=== PATIENT | female | born 1985 | race Caucasian/White ===

== ENCOUNTER 2020-11-14 13:59 | Emergency (ER) | payer OTHER, SELFPAY ==
[2020-11-14 14:08] VITALS: BP 158/100; PULSE 87; RESP 12; TEMP 37; O2SAT 98; BMI 49.9
[2020-11-14 14:41] LABS: Add Manual Diff / Slide Review NO; Basophils Absolute Auto 0 /uL (0-100); Basophils Percent Auto 0.4 % (0-2); Eosinophils Absolute Auto 100 /uL (0-450); Eosinophils Percent Auto 1.6 % (2-4); Hematocrit 40.6 % (36-46); Hemoglobin 13.3 g/dL (12.0-16.0); Lymphocytes Absolute Auto 2200 /uL (1100-4500); Lymphocytes Percent Auto 24.7 % (25-40); Mean Corpuscular HGB Conc 32.9 % (30-36); Mean Corpuscular Hemoglobin 27.6 PG (26-34); Mean Corpuscular Volume 83.9 fL (80-100); Monocytes Absolute Auto 500 /uL (0-900); Monocytes Percent Auto 5.4 % (3-14); Neutrophils Absolute Auto 6100 /uL (1500-7000); Neutrophils Percent Auto 67.9 % (50-75); Platelet Count 283 X10^3/uL (150-400); Red Blood Cell Count 4.84 X10^6/uL (4.0-5.2); Red Cell Distribution Width 13.9 % (11.6-14.8)
[2020-11-14 14:48] LABS: Blood Urea Nitrogen 19 mg/dL (7-17); Calcium 8.9 mg/dL (8.4-10.2); Carbon Dioxide 27 mmol/L (22-32); Chloride 104 mmol/L (98-107); Estimated Glomerular Filt Rate > 60.0 mL/min (>60); Glucose 102 mg/dL (70-100); HEMOLYSIS 17 (0-50); Potassium 4.1 mmol/L (3.4-5.1); Sodium 137 mmol/L (137-145)
--- NOTE | 2020-11-14 14:48 | DI.CT.S_ITS ---
PROCEDURE: CT HEAD/BRAIN WO CON INDICATIONS: severe headache and vision change TECHNIQUE: Noncontrast 4.5 mm thick angled axial sections acquired from the foramen magnum to the vertex, with coronal and sagittal reformats. For radiation dose reduction, the following was used: automated exposure control, adjustment of mA and/or kV according to patient size. COMPARISON: None. FINDINGS: Image quality: Excellent. CSF spaces: Basal cisterns are patent. No extra-axial fluid collections. Ventricles are normal in size and shape. Brain: No midline shift. No intracranial masses or hemorrhage. Delgadillo-white matter interface is normal. Skull and face: Calvarium and visualized facial bones are intact, without suspicious lesions. Sinuses: Visualized sinuses and mastoids are clear. IMPRESSION: Source of headache and vision changes is not seen. No sign of intracranial hemorrhage or mass. Dictated by: Lane Cifuentes M.D. on 11/14/2020 at 14:54 Approved by: Lane Cifuentes M.D. on 11/14/2020 at 14:54
[2020-11-14] MEDS: METOCLOPRAMIDE 10 MG/2 ML INJ IV (14:53)
[2020-11-14] MEDS: diphenhydrAMINE 50 MG/ML VIAL 25 MG IV (14:53)
[2020-11-14] MEDS: SODIUM CHLORIDE 0.9% 1,000 ML 1000 ML IV (14:54)
--- NOTE | 2020-11-14 14:55 | ED_ITS ---
HPI - Headache <ANN-MARIE Horton - Last Filed: 11/14/20 17:05> General Chief Complaint: Headache Stated Complaint: REACTION TO COVID VACCINE HEADACHES FEVER LEFT EYE Time Seen by Provider: 11/14/20 14:02 Source: patient and family Mode of arrival: Ambulatory Limitations: no limitations History of Present Illness HPI Narrative: This is a 35 year female, nonsmoker, who has no contributory medical history or frequent ore severe headaches presents to ED the chief complain of frontal headache, photophobia, nausea and vomiting last night, peripheral vision changes after the Covid Moderna vaccination. Patient reports received 1st dose of COVID vaccination on 11/01/2020 and she felt immediate headache. She also developed right deltoid abscess which was treated with amoxicillin. Patient reports has been running low-grade of temperature in 99- 100 F degree since the Covid vaccination. Patient reports severe frontal headache since 4:00 p.m. yesterday. Patient was evaluated by dye colorist dyer in [facility] in [place] and is currently waiting for referral to go through to neuro field service specialist in [place]. According to spouse, eye exam per dye colorist dyer was within normal with normal IOP. They were told the patient's symptoms could be due to pressure in optic nerve. Patient denies facial droops, extremity weakness, speech difficulty, or balance difficulty. 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 Related Data Previous Rx's Medication Instructions Recorded methocarbamol [Robaxin-750] 750 mg PO QIDP PRN #40 tab 05/10/17 ondansetron 4 mg PO Q6H PRN #7 tab 11/14/20 Allergies Allergy/AdvReac Type Severity Reaction Status Date / Time lidocaine Allergy Unknown Verified 11/14/20 16:44 ARTECAINE (PRESERVATIVE) Allergy Unknown Uncoded 11/14/20 16:44 preservative in lidocaine Allergy Unknown Uncoded 11/14/20 16:44 Review of Systems <ANN-MARIE Horton - Last Filed: 11/14/20 17:05> Review of Systems Narrative: General: Denies (+) subjective fever, chills, fatigue, malaise, sweats. HEENT: See HPI Respiratory: Denies dyspnea, cough, wheezing, hemoptysis, sputum. Cardiovascular: Denies chest pain, palpitations, orthopnea, edema. Gastrointestinal: Denies nausea, vomiting, abdominal pain, diarrhea, constipation, melena. : Denies dysuria, frequency, incontinence, hematuria, urinary retention. Musculoskeletal: Denies weakness, joint pain or bony pain. Skin: Denies rash, skin lesions, or other. Neurologic: See HPI Psychiatric: No concerning psychosocial issues. 12-point review of systems is negative except for those stated above. Patient History <ANN-MARIE Horton - Last Filed: 11/14/20 17:05> Surgical History (Updated 11/14/20 @ 15:04 by ANN-MARIE Horton) H/O knee surgery History of colon surgery History of right salpingo-oophorectomy Social History Smoking Status: Never smoker Smoking Status: Never smoker alcohol intake frequency: holidays/special occasions only Substance Use Type: does not use Exam <ANN-MARIE Horton - Last Filed: 11/14/20 17:05> Narrative Exam Narrative: GEN: Alert, oriented x 3, well appearing and nourished, and in no acute distress. Head: Normal cephalic, atraumatic. No scalp or temporal tenderness, palpable mass or rash. EYES: Pupils are equal, round, and reactive to light and accommodation. Extraocular muscles are intact bilaterally. There is no subconjunctival hemorrhage, exudate and sclera non-icteric. ENT: Hearing grossly intact. Nose without bleeding, purulent discharge, septal hematoma or deviation. Turbinate without erythema or swelling. Facial sinuses nontender to palpate. Mucous membrane moist, no mucosal lesion. Throat without erythema, tonsillar hypertrophy or exudate. Uvula in midline, airway patent. Neck: Trachea in midline. No JVD, non-tender without lymphadenopathy. No masses or thyroid megaly. Supple, non-tender and no meningeal signs. CARDIAC: Normal regular rate and rhythm without murmurs, gallops, or rubs. No chest wall tenderness. No peripheral edema, cyanosis or pallor. Capillary refill is less than 2 seconds. No carotid bruits. RESPIRATORY: Lungs are cleat to auscultate bilaterally. No cough, wheezes, rales, or rhonchi. No stridor, respiratory distress, increase work of breathing, or accessary muscle used. ABD: Abdomen soft, nontender and non-distended. No guarding or rebound tenderness to palpate. Bowel sounds are normal in all 4 quadrants. There is no palpable masses or organomegaly. EXT: Full painless ROM of all extremities with no loss of sensation, strength, effusion or edema. SKIN: Warm, dry, normal color for patient. No erythema, lesions or rash. BACK: Nontender without deformity or crepitance. No flank tenderness. NEUROLOGICAL: Alert and oriented to place, time and person. No facial droops, dysphasia. CN II-XII intact. Strength and sensation symmetric and intact throughout. Cerebellar testing normal. PSYCHIATRIC: Good judgement and reason, without hallucinations, abnormal affect or abnormal behaviors during the examination. Patient is not suicidal. Initial Vital Signs Initial Vital Signs: Vital Signs Temperature 98.6 F 11/14/20 14:08 Pulse Rate 87 11/14/20 14:08 Respiratory Rate 12 11/14/20 14:08 Blood Pressure 158/100 H 11/14/20 14:08 Pulse Oximetry 98 11/14/20 14:08 <Jayde Martin DO - Last Filed: 11/14/20 19:39> Initial Vital Signs Initial Vital Signs: Vital Signs Temperature 98.6 F 11/14/20 14:08 Pulse Rate 87 11/14/20 14:08 Respiratory Rate 12 11/14/20 14:08 Blood Pressure 158/100 H 11/14/20 14:08 Pulse Oximetry 98 11/14/20 14:08 Scores <Froylan ANN-MARIE Cleaning - Last Filed: 11/14/20 17:05> GCS Ash[place] coma scale eye opening: Spontaneous [place] coma scale verbal response: Orientated [place] coma scale motor response: Obey commands [place] coma scale total score: 15 NIH Stroke Scale Level of Conciousness: Alert, keenly responsive Ask month/age: Answers both questions correctly. Open/close eyes, close hand: Performs both tasks correctly Best gaze horizontal: Normal Facial palsy: Normal symetrical movement Left arm drift: No drift for full 10 sec Right arm drift: No drift for full 10 sec Left leg drift: No drift for full 5 sec Right leg drift: No drift for full 5 sec Limb ataxia: Absent Sensory on face/arms/legs: Normal, no sensory loss Best language: No aphasia, normal Dysarthria: Normal Extinction or inattention: No abnormality Course <ANN-MARIE Horton - Last Filed: 11/14/20 17:05> Orders Ordered: ED Orders 11/14/20 14:11 COVID19 Stat 11/14/20 14:19 Basic Metabolic Panel Stat Complete Blood Count AUTO DIFF Stat 11/14/20 14:48 CT head/brain wo con Stat Discontinued Medications Dexamethasone (Dexamethasone 10 Mg/Ml Vial) 10 mg IV NOW ONE Stop: 11/14/20 16:39 Last Admin: 11/14/20 16:48 Dose: 10 mg Documented by: MENDOZA Diphenhydramine HCl (Diphenhydramine 50 Mg/Ml Vial) 25 mg IV NOW ONE Stop: 11/14/20 14:35 Last Admin: 11/14/20 14:53 Dose: 25 mg Documented by: RAFAEL Sodium Chloride (Normal Saline 0.9%) 1,000 mls @ 1,000 mls/hr IV BOLUS ONE Stop: 11/14/20 15:33 Last Infusion: 11/14/20 16:55 Dose: 0 mls/hr Documented by: Admin: 11/14/20 14:54 Dose: 1,000 mls/hr Documented by: RAFAEL Ketorolac Tromethamine (Ketorolac 60 Mg/2 Ml Vial) 15 mg IV NOW ONE Stop: 11/14/20 15:08 Last Admin: 11/14/20 15:12 Dose: 15 mg Documented by: MENDOZA Metoclopramide HCl (Metoclopramide 10 Mg/2 Ml Inj) 10 mg IV NOW ONE Stop: 11/14/20 14:35 Last Admin: 11/14/20 14:53 Dose: 10 mg Documented by: RAFAEL Pantoprazole Sodium (Pantoprazole 20 Mg Tablet) 20 mg PO NOW ONE Stop: 11/14/20 16:39 Last Admin: 11/14/20 16:48 Dose: 20 mg Documented by: MENDOZA Vital Signs Vital signs: Vital Signs - 8 hr 11/14/20 14:08 11/14/20 15:30 11/14/20 17:01 Temperature 98.6 F Pulse Rate 87 72 80 Respiratory Rate 12 16 16 Blood Pressure 158/100 H 147/92 H 135/73 Pulse Oximetry 98 96 99 <Jayde Martin DO - Last Filed: 11/14/20 19:39> Orders Ordered: ED Orders 11/14/20 14:11 COVID19 Stat 11/14/20 14:19 Basic Metabolic Panel Stat Complete Blood Count AUTO DIFF Stat 11/14/20 14:48 CT head/brain wo con Stat Discontinued Medications Dexamethasone (Dexamethasone 10 Mg/Ml Vial) 10 mg IV NOW ONE Stop: 11/14/20 16:39 Last Admin: 11/14/20 16:48 Dose: 10 mg Documented by: MENDOZA Diphenhydramine HCl (Diphenhydramine 50 Mg/Ml Vial) 25 mg IV NOW ONE Stop: 11/14/20 14:35 Last Admin: 11/14/20 14:53 Dose: 25 mg Documented by: RAFAEL Sodium Chloride (Normal Saline 0.9%) 1,000 mls @ 1,000 mls/hr IV BOLUS ONE Stop: 11/14/20 15:33 Last Infusion: 11/14/20 16:55 Dose: 0 mls/hr Documented by: Admin: 11/14/20 14:54 Dose: 1,000 mls/hr Documented by: RAFAEL Ketorolac Tromethamine (Ketorolac 60 Mg/2 Ml Vial) 15 mg IV NOW ONE Stop: 11/14/20 15:08 Last Admin: 11/14/20 15:12 Dose: 15 mg Documented by: MENDOZA Metoclopramide HCl (Metoclopramide 10 Mg/2 Ml Inj) 10 mg IV NOW ONE Stop: 11/14/20 14:35 Last Admin: 11/14/20 14:53 Dose: 10 mg Documented by: RAFAEL Pantoprazole Sodium (Pantoprazole 20 Mg Tablet) 20 mg PO NOW ONE Stop: 11/14/20 16:39 Last Admin: 11/14/20 16:48 Dose: 20 mg Documented by: MENDOZA Vital Signs Vital signs: Vital Signs - 8 hr 11/14/20 14:08 11/14/20 15:30 11/14/20 17:01 Temperature 98.6 F Pulse Rate 87 72 80 Respiratory Rate 12 16 16 Blood Pressure 158/100 H 147/92 H 135/73 Pulse Oximetry 98 96 99 MDM - Headache <Froylan ANN-MARIE Cleaning - Last Filed: 11/14/20 17:05> Differential Diagnosis Differential diagnosis: Likely headache Medical Records Attestation: I reviewed the patient's medical records. Lab Data Attestation: I reviewed the patient's lab results. Result diagrams: 11/14/20 14:19 11/14/20 14:19 Labs: Lab Results 11/14/20 11/14/20 11/14/20 Range/Units 14:11 14:19 14:19 WBC 9.0 (4.5-11.0) X10^3/uL RBC 4.84 (4.0-5.2) X10^6/uL Hgb 13.3 (12.0-16.0) g/dL Hct 40.6 (36-46) % MCV 83.9 (80-100) fL MCH 27.6 (26-34) PG MCHC 32.9 (30-36) % RDW 13.9 (11.6-14.8) % Plt Count 283 (150-400) X10^3/uL Neut % (Auto) 67.9 (50-75) % Lymph % (Auto) 24.7 L (25-40) % Bee % (Auto) 5.4 (3-14) % Eos % (Auto) 1.6 L (2-4) % Baso % (Auto) 0.4 (0-2) % Neut # (Auto) 6100 (9187-0145) /uL Lymph # (Auto) 2200 (5631-8378) /uL Bee # (Auto) 500 (0-900) /uL Eos # (Auto) 100 (0-450) /uL Baso # (Auto) 0 (0-100) /uL Sodium 137 (137-145) mmol/L Potassium 4.1 (3.4-5.1) mmol/L Chloride 104 (98-107) mmol/L Carbon Dioxide 27 (22-32) mmol/L BUN 19 H (7-17) mg/dL Creatinine 0.76 (0.52-1.04) mg/dL Estimated GFR > 60.0 (>60) mL/min BUN/Creatinine Ratio 25.0 H (6-22) Glucose 102 H (70-100) mg/dL Calcium 8.9 (8.4-10.2) mg/dL SARS-CoV-2 (PCR) Negative (Negative) Imaging Data CT scan - head: Radiologist's Impression: [address] [id number] Scan ReportSigned Patient: Carina Vazquez EMR#: [id number]: 1985Acct:[id number]/Sex: 35 / FDate of Service: 11/14/20Loc: EDAccession Number: [id number] Procedure: CT head/brain wo con Ordering Provider: Froylan Cleaning PROCEDURE: CT HEAD/BRAIN WO CON INDICATIONS: severe headache and vision change TECHNIQUE: Noncontrast 4.5 mm thick angled axial sections acquired from the foramen magnum to the vertex, with coronal and sagittal reformats. For radiation dose reduction, the following was used: automated exposure control, adjustment of mA and/or kV according to patient size. COMPARISON: None. FINDINGS: Image quality: Excellent. CSF spaces: Basal cisterns are patent. No extra-axial fluid collections. Ventricles are normal in size and shape. Brain: No midline shift. No intracranial masses or hemorrhage. Delgadillo-white matter interface is normal. Skull and face: Calvarium and visualized facial bones are intact, without suspicious lesions. Sinuses: Visualized sinuses and mastoids are clear. IMPRESSION: Source of headache and vision changes is not seen. No sign of intracranial hemorrhage or mass. Dictated by: Lane Cifuentes M.D. on 11/14/2020 at 14:54 Approved by: Lane Cifuentes M.D. on 11/14/2020 at 14:54 [facility] Narrative Medical decision making narrative: This is a 35 year female who presents to ED with chief complain of frontal headache, nausea and vomiting times once, photophobia and she has associated her symptoms after receiving COVID vaccination. First vaccination received on 01 of November and she felt immediate headache. She has been having left peripheral blurred vision and she has evaluated by dye colorist dyer in [facility] with normal findings with his capacity and is currently waiting for referral to go through to be seen by neuro field service specialist at [place] with concerns for possible swelling/edema above the optic nerve. NIHSS score 0. No acute stroke signs. Given patient denies severe or frequent headache history, head CT was obtained with no acute findings. Labs are assuring except mildly elevated BUN, BUN/creatinine ratio indicate dehydration. COVID test was negative. Patient was treated with IV fluid, Benadryl, Reglan, Toradol with Moderate improvement. Patient was given 1 dose of Decadron before leaving ED and discharged to home with ODT Zofran as needed use. Patient advised to follow-up with [place] field service specialist for further evaluation and possible imaging test. Return precautions were discussed with patient and she verbalized understanding in agreement with the treatment plan. <Jayde Martin, DO - Last Filed: 11/14/20 19:39> Lab Data Labs: Lab Results 11/14/20 11/14/20 11/14/20 Range/Units 14:11 14:19 14:19 WBC 9.0 (4.5-11.0) X10^3/uL RBC 4.84 (4.0-5.2) X10^6/uL Hgb 13.3 (12.0-16.0) g/dL Hct 40.6 (36-46) % MCV 83.9 (80-100) fL MCH 27.6 (26-34) PG MCHC 32.9 (30-36) % RDW 13.9 (11.6-14.8) % Plt Count 283 (150-400) X10^3/uL Neut % (Auto) 67.9 (50-75) % Lymph % (Auto) 24.7 L (25-40) % Bee % (Auto) 5.4 (3-14) % Eos % (Auto) 1.6 L (2-4) % Baso % (Auto) 0.4 (0-2) % Neut # (Auto) 6100 (7895-3296) /uL Lymph # (Auto) 2200 (2986-8605) /uL Bee # (Auto) 500 (0-900) /uL Eos # (Auto) 100 (0-450) /uL Baso # (Auto) 0 (0-100) /uL Sodium 137 (137-145) mmol/L Potassium 4.1 (3.4-5.1) mmol/L Chloride 104 (98-107) mmol/L Carbon Dioxide 27 (22-32) mmol/L BUN 19 H (7-17) mg/dL Creatinine 0.76 (0.52-1.04) mg/dL Estimated GFR > 60.0 (>60) mL/min BUN/Creatinine Ratio 25.0 H (6-22) Glucose 102 H (70-100) mg/dL Calcium 8.9 (8.4-10.2) mg/dL SARS-CoV-2 (PCR) Negative (Negative) Discharge Plan Departure Patient Disposition: Home Clinical Impression: Blurred vision, left eye Headache Qualifiers: Headache type: unspecified Headache chronicity pattern: acute headache In tractability: not intractable Qualified Code(s): R51.9 - Headache, unspecified Instructions: DI for Headache Activity Restrictions/Additional Instructions: You have been diagnosed with [headache, nausea vomiting, blurred vision in left eye. CT of head without acute findings. COVID test was negative. Lab test are assuring.]. What to do: *Take your medications as directed. Please take [id number] Tylenol and or Motrin as needed for discomfort. You can take Zofran as needed for nausea. *Follow up with your primary care provider in 2-3 days, call for an appointment. Let them know you were seen in the ED and that we asked you to be seen in follow up. Please follow-up with neuro field service specialist for an evaluation. Zofran has been transmitted to [facility] in [place]. *Return to ED if you have any new, worsening, or concerning symptoms, such as [chest pain, breathing difficulty, unable to tolerate fluids, fever, stroke-like symptoms, or any acute concerns]. Prescriptions: New ondansetron 4 mg tablet,disintegrating 4 mg PO Q6H PRN (Reason: nausea and vomiting) Qty: 7 RF: 0 No Action methocarbamol [Robaxin-750] 750 MG tablet 750 mg PO QIDP PRNQty: 40 RF: 0 Referrals: [facility] [Outside] <Jayde Martin, - Last Filed: 11/14/20 19:39> [facility] ED Attending Jaimie Attestation: I was immediately available in the department for consultation. Documentation has been reviewed. Case was discussed with myself agree with documentation.
[2020-11-14] MEDS: KETOROLAC 60 MG/2 ML VIAL 15 MG IV (15:12)
[2020-11-14 15:15] LABS: COVID19 -Nasal RAPID Negative (Negative)
[2020-11-14 15:30] VITALS: BP 147/92; PULSE 72; RESP 16; O2SAT 96
[2020-11-14] MEDS: DEXAMETHASONE 10 MG/ML VIAL IV (16:48)
[2020-11-14] MEDS: PANTOPRAZOLE 20 MG TABLET PO (16:48)
[2020-11-14 17:01] VITALS: BP 135/73; PULSE 80; RESP 16; O2SAT 99
== END 2020-11-14 17:01 | disposition home or self-care (01) ==
PROVIDERS: Emergency Provider Nurse Practitioner Family
DX: H53.8 Other visual disturbances (principal); R51.9 Headache, unspecified; R11.2 Nausea with vomiting, unspecified; R50.9 Fever, unspecified; Z20.822 Contact with and (suspected) exposure to COVID-19; R79.89 Other specified abnormal findings of blood chemistry
CPT/HCPCS: 36415; 70450; 80048; 85025; 87635; 96361; 96374; 96375; 99283; 99284; C9803; J1100; J1200; J1885; J2765

== ENCOUNTER 2021-01-26 07:20 | Emergency (ER) | payer OTHER, SELFPAY ==
[2021-01-26 07:27] VITALS: BP 158/93; PULSE 96; RESP 16; TEMP 36.5; O2SAT 99; BMI 51.0
--- NOTE | 2021-01-26 07:27 | DI.RAD.S_ITS ---
PROCEDURE: XR HUMERUS LT 2V INDICATIONS: prior ORIF with new injury and pain TECHNIQUE: 2 views of the humerus were acquired. COMPARISON: [facility], , HUMERUS 2V LEFT, 05/10/2017, 20:23. [facility], , HUMERUS 2V LEFT, 04/22/2016, 8:42. FINDINGS: Bones: Two views of the left humerus demonstrate sideplate and screw fixation. Screws are wall aligned. There is continued healing and remodeling of the mid humeral shaft. No perihardware lucency. Soft tissues: No suspicious soft tissue calcifications. IMPRESSION: Continued healing of a left humerus fracture. Dictated by: Abhishek Chin M.D. on 01/26/2021 at 8:11 Approved by: Abhishek Chin M.D. on 01/26/2021 at 8:13
--- NOTE | 2021-01-26 07:27 | ED_ITS ---
HPI - General Adult General Chief complaint: Extremity Injury, Upper Stated complaint: left arm/shoulder injury pain has metal plate Time Seen by Provider: 01/26/21 07:24 Source: patient Mode of arrival: Ambulatory Limitations: no limitations History of Present Illness HPI narrative: 36-year-old female who has a prior history the left humerus ORIF approximately 4 years ago here for evaluation of pain in her left humerus. She states that yesterday she was riding her horse when the horse slipped and she fell into a tree. She did not fall off of the horse her left arm just hit the tree as the worse came close to it. She has been taking Tylenol and ibuprofen. Has pain in her left upper arm. That radiates from her shoulder to her elbow. Related Data Previous Rx's Medication Instructions Recorded methocarbamol [Robaxin-750] 750 mg PO QIDP PRN #40 tab 05/10/17 ondansetron 4 mg PO Q6H PRN #7 tab 11/14/20 hydrocodone-acetaminophen 1 tab PO Q6H PRN #6 tab 01/26/21 Allergies Allergy/AdvReac Type Severity Reaction Status Date / Time lidocaine Allergy Unknown Verified 11/14/20 16:44 ARTECAINE (PRESERVATIVE) Allergy Unknown Uncoded 11/14/20 16:44 preservative in lidocaine Allergy Unknown Uncoded 11/14/20 16:44 Review of Systems Constitutional Constitutional: Denies fever(s) and Denies weakness Musculoskeletal Musculoskeletal: Denies tingling Comments: Left arm pain Integumentary/Breasts Skin/Breast: Denies lesions and Denies rash Neurologic Neurologic: Denies tingling and Denies weakness Hematologic/Lymphatic On Anticoagulants: No Patient History Medical History Arm pain, left Lumbar strain Post-operative pain Strain of left knee Surgical History (Updated 11/14/20 @ 15:04 by ANN-MARIE Horton) H/O knee surgery History of colon surgery History of right salpingo-oophorectomy Social History Smoking Status: Never smoker Smoking Status: Never smoker alcohol intake frequency: holidays/special occasions only Substance Use Type: does not use Exam Initial Vital Signs Initial Vital Signs: Vital Signs Temperature 97.7 F 01/26/21 07:27 Pulse Rate 96 H 01/26/21 07:27 Respiratory Rate 16 01/26/21 07:27 Blood Pressure 158/93 H 01/26/21 07:27 Pulse Oximetry 99 01/26/21 07:27 Const General: cooperative and comfortable Limitations: mental status not altered HENMT Head: normal to inspection and normocephalic Cardio Pulses: radial pulses present on the left Skin Other: Well-healed surgical scar consistent with her stated history on the medial aspect of her left upper extremity Neuro Sensory Exam: no sensory deficits noted Extrem Other: Patient has full range of motion of her left shoulder left elbow however this does cause discomfort of her left humerus with movement of her shoulder Psych Appearance: grossly normal and well kempt Course Orders Ordered: ED Orders 01/26/21 07:27 XR humerus LT 2V Stat Discontinued Medications Hydrocodone Bitart/Acetaminophen (Hydrocodone/Acet 5/325 Tablet) 1 tab PO NOW ONE Stop: 01/26/21 07:31 Last Admin: 01/26/21 07:38 Dose: 1 tab Documented by: Vital Signs Vital signs: Vital Signs - 8 hr 01/26/21 07:27 Temperature 97.7 F Pulse Rate 96 H Respiratory Rate 16 Blood Pressure 158/93 H Pulse Oximetry 99 Medical Decision Making Imaging Data Extremity x-ray #1: Attestation: I personally reviewed and interpreted this imaging study as follows: My Impression: Prior ORIF plate in place. No signs of acute fracture. MDM Narrative Medical decision making narrative: Patient is neurovascularly intact. Her x- rays today showed no signs of any acute fractures. No indication for further radiologic studies. No indication for orthopedic referral. She will continue with the Tylenol and ibuprofen. We did discuss return precautions. She expressed understanding and agreement. Discharge Plan Departure Patient Disposition: Home Clinical Impression: Arm pain, left Instructions: DI for Arm Pain Activity Restrictions/Additional Instructions: The plate on your left humerus appears well. There are no signs of any new fractures. You have no restrictions on any if your activities. Continue with Tylenol/ibuprofen as the mainstay of your symptom control however if needed take the stronger medication that was transmitted to the pharmacy of your choice. Contact your primary provider for follow-up. Return to the emergency department for any new or worsening symptoms Prescriptions: New hydrocodone-acetaminophen 5-325 mg tablet 1 tab PO Q6H PRN (Reason: pain) Qty: 6 RF: 0 No Action methocarbamol [Robaxin-750] 750 MG tablet 750 mg PO QIDP PRNQty: 40 RF: 0 ondansetron 4 mg tablet,disintegrating 4 mg PO Q6H PRN (Reason: nausea and vomiting) Qty: 7 RF: 0
[2021-01-26] MEDS: HYDROCODONE/ACET 5/325 TABLET 1 TAB PO (07:38)
== END 2021-01-26 08:00 | disposition home or self-care (01) ==
PROVIDERS: Emergency Provider Emergency Medicine
DX: M79.622 Pain in left upper arm (principal); Z98.890 Other specified postprocedural states
CPT/HCPCS: 73060; 99283

== ENCOUNTER 2021-04-08 19:57 | Emergency (ER) | payer OTHER, SELFPAY ==
[2021-04-08 20:03] VITALS: BP 138/56; PULSE 103; RESP 24; TEMP 36.6; O2SAT 97
--- NOTE | 2021-04-08 20:06 | DI.RAD.S_ITS ---
PROCEDURE: XR CHEST 2V INDICATIONS: shortness of breath TECHNIQUE: 2 views of the chest were acquired. COMPARISON: None. FINDINGS: Surgical changes and devices: None. Lungs and pleura: Lungs are clear. No pleural effusions or pneumothorax. Mediastinum: Mediastinal contours are normal. Heart size is normal. Bones and chest wall: No suspicious bony abnormalities. Soft tissues appear unremarkable. IMPRESSION: Normal for age, source of current shortness of breath symptoms is not seen. Dictated by: Lane Cifuentes M.D. on 04/08/2021 at 20:44 Approved by: Lane Cifuentes M.D. on 04/08/2021 at 20:45
--- NOTE | 2021-04-08 20:29 | PC.NURSE ---
patient complains of low grade fever and ear pain. She reports slight blood spotting from her left ear, diarrhea, and SOB. She is most concerned about her ear pain. She is not on control and denies having traveled or sat for long periods of time. She got the first of 1 covid vaccinations and reports brain swelling and did not get the second vaccination. She does work in a hospital.
[2021-04-08 20:30] LABS: Add Manual Diff / Slide Review NO; Basophils Absolute Auto 100 /uL (0-100); Basophils Percent Auto 0.8 % (0-2); Eosinophils Absolute Auto 200 /uL (0-450); Eosinophils Percent Auto 1.5 % (2-4); Hematocrit 38.7 % (36-46); Hemoglobin 12.4 g/dL (12.0-16.0); Lymphocytes Absolute Auto 2500 /uL (1100-4500); Lymphocytes Percent Auto 20.8 % (25-40); Mean Corpuscular HGB Conc 32.1 % (30-36); Mean Corpuscular Hemoglobin 26.5 PG (26-34); Mean Corpuscular Volume 82.6 fL (80-100); Monocytes Absolute Auto 700 /uL (0-900); Neutrophils Absolute Auto 8400 /uL (1500-7000); Neutrophils Percent Auto 70.9 % (50-75); Platelet Count 323 X10^3/uL (150-400); Red Blood Cell Count 4.69 X10^6/uL (4.0-5.2); Red Cell Distribution Width 13.8 % (11.6-14.8); White Blood Cell Count 11.9 X10^3/uL (4.5-11.0)
--- NOTE | 2021-04-08 20:31 | RT ---
Assessed pt at 2017. Pt here for SOB, L ear pain, and low grade fever. Pt on RA, SpO2 97%, RR 22, BS clear t/o. Pt has no pulmonary hx, no smoking hx. Pt doesn't use MDIs/SVNs, O2, and BiPAP/CPAP at home. No extremity swelling. Recommending O2 therapy as needed and will monitor pt.
[2021-04-08 20:39] LABS: Lactate (Lactic Acid) 1.1 mmol/L (0.7-2.1)
[2021-04-08 20:40] LABS: Alanine Aminotransferase 29 IU/L (<35); Albumin 3.7 g/dL (3.5-5.0); Albumin Globulin Ratio 1.2 (1.0-2.8); Alkaline Phosphatase 119 U/L (38-126); Aspartate Aminotransferase 25 IU/L (14-36); BUN Creatinine Ratio 7.5 (6-22); Bilirubin Total 0.4 mg/dL (0.2-1.3); Blood Urea Nitrogen 12 mg/dL (7-17); Calcium 8.4 mg/dL (8.4-10.2); Carbon Dioxide 26 mmol/L (22-32); Chloride 105 mmol/L (98-107); Estimated Glomerular Filt Rate 36.7 mL/min (>60); Globulin 3.1 g/dL (1.7-4.1); Glucose 118 mg/dL (70-100); HEMOLYSIS < 15 (0-50); Potassium 4.1 mmol/L (3.4-5.1); Sodium 139 mmol/L (137-145); Total Protein 6.8 g/dL (6.3-8.2)
[2021-04-08 21:00] LABS: Pregnancy Test Serum,Qual Negative (Negative)
[2021-04-08 21:06] LABS: COVID19 -Nasal RAPID Negative (Negative)
--- NOTE | 2021-04-08 21:33 | ED.GENADULT ---
HPI - General Adult General Chief complaint: Shortness of Breath/Dyspnea Stated complaint: left ear pain/low grade fever/shortness of breath Time Seen by Provider: 04/08/21 20:17 Source: patient Mode of arrival: Ambulatory Limitations: no limitations History of Present Illness HPI narrative: Patient is a 36-year-old female here for evaluation of left ear pain. She also states she has had a low-grade fever for the past day. Prior to coming into the emergency department she had 1 episode of shortness of breath that has now resolved. Has not tried anything for her symptoms prior to arrival Related Data Previous Rx's Medication Instructions Recorded methocarbamol [Robaxin-750] 750 mg PO QIDP PRN #40 tab 05/10/17 ondansetron 4 mg PO Q6H PRN #7 tab 11/14/20 hydrocodone-acetaminophen 1 tab PO Q6H PRN #6 tab 01/26/21 Allergies Allergy/AdvReac Type Severity Reaction Status Date / Time lidocaine Allergy Unknown Verified 11/14/20 16:44 ARTECAINE (PRESERVATIVE) Allergy Unknown Uncoded 11/14/20 16:44 preservative in lidocaine Allergy Unknown Uncoded 11/14/20 16:44 Review of Systems Constitutional Constitutional: Reports fever(s) ENT Comments: Left ear pain Cardiovascular Cardiovascular: Denies chest pain and Reports dyspnea Respiratory Respiratory: Reports dyspnea Gastrointestinal Gastrointestinal: Denies abdominal pain and Reports vomiting (2 episodes of vomiting yesterday) Musculoskeletal Musculoskeletal: Reports system reviewed and no additional complaints, except as documented Integumentary/Breasts Skin/Breast: Denies rash Neurologic Neurologic: Reports system reviewed and no additional complaints, except as documented Psychiatric Psychiatric: Reports system reviewed and no additional complaints, except as documented Patient History Medical History Arm pain, left Lumbar strain Post-operative pain Strain of left knee Surgical History (Updated 11/14/20 @ 15:04 by ANN-MARIE Horton) H/O knee surgery History of colon surgery History of right salpingo-oophorectomy Social History Smoking Status: Never smoker Smoking Status: Never smoker alcohol intake frequency: holidays/special occasions only Substance Use Type: does not use Exam Initial Vital Signs Initial Vital Signs: Vital Signs Temperature 97.9 F 04/08/21 20:03 Pulse Rate 103 H 04/08/21 20:03 Respiratory Rate 24 04/08/21 20:03 Blood Pressure 138/56 L 04/08/21 20:03 Pulse Oximetry 97 04/08/21 20:03 Const General: cooperative and comfortable Limitations: mental status not altered HENMT Ears: external ears normal and TM's normal bilaterally Neck Lymphatic: lymphadenopathy (Left anterior cervical) Resp Effort & Inspection: normal respiratory effort Auscultation: clear to auscultation bilaterally Cardio Rate: regular rate Rhythm: regular rhythm Skin Lesions: no lesions Rashes: no rashes Neuro General: patient alert, patient awake and patient oriented x3 Cognition: normal cognition Speech: speech normal Extrem General: normal to inspection and capillary refill normal Psych Appearance: grossly normal and well kempt Course Orders Ordered: ED Orders 04/08/21 20:06 XR chest 2V Stat EKG-12 Lead Stat RT Consult Eval and Treat Now 04/08/21 20:22 Complete Blood Count AUTO DIFF Stat Comprehensive Metabolic Panel Stat Lactate (Lactic Acid) Stat Test Serum,Qual Stat 04/08/21 20:42 COVID19 -Nasal swab/Pre-Proc Stat Discontinued Medications Sodium Chloride (Normal Saline 0.9%) 1,000 mls @ 1,000 mls/hr IV BOLUS ONE Stop: 04/08/21 22:09 Last Infusion: 04/08/21 22:00 Dose: 0 mls/hr Documented by: Admin: 04/08/21 21:35 Dose: 1,000 mls/hr Documented by: ALEC Vital Signs Vital signs: Vital Signs - 8 hr 04/08/21 20:03 04/08/21 21:38 04/08/21 21:58 Temperature 97.9 F Pulse Rate 103 H 89 96 H Respiratory Rate 24 24 14 Blood Pressure 138/56 L 135/70 135/70 Pulse Oximetry 97 99 96 Medical Decision Making Lab Data Lab results reviewed: Yes I reviewed the patient's lab results. Result diagrams: 04/08/21 20:22 04/08/21 20:22 Labs: Lab Results 04/08/21 04/08/21 04/08/21 Range/Units 20:22 20:22 20:22 WBC 11.9 H (4.5-11.0) X10^3/uL RBC 4.69 (4.0-5.2) X10^6/uL Hgb 12.4 (12.0-16.0) g/dL Hct 38.7 (36-46) % MCV 82.6 (80-100) fL MCH 26.5 (26-34) PG MCHC 32.1 (30-36) % RDW 13.8 (11.6-14.8) % Plt Count 323 (150-400) X10^3/uL Neut % (Auto) 70.9 (50-75) % Lymph % (Auto) 20.8 L (25-40) % Glasscock % (Auto) 6.0 (3-14) % Eos % (Auto) 1.5 L (2-4) % Baso % (Auto) 0.8 (0-2) % Neut # (Auto) 8400 H (1437-3613) /uL Lymph # (Auto) 2500 (8008-8063) /uL Glasscock # (Auto) 700 (0-900) /uL Eos # (Auto) 200 (0-450) /uL Baso # (Auto) 100 (0-100) /uL Sodium 139 (137-145) mmol/L Potassium 4.1 (3.4-5.1) mmol/L Chloride 105 (98-107) mmol/L Carbon Dioxide 26 (22-32) mmol/L BUN 12 (7-17) mg/dL Creatinine 1.60 H (0.52-1.04) mg/dL Estimated GFR 36.7 L (>60) mL/min BUN/Creatinine Ratio 7.5 (6-22) Glucose 118 H (70-100) mg/dL Lactate 1.1 (0.7-2.1) mmol/L Calcium 8.4 (8.4-10.2) mg/dL Total Bilirubin 0.4 (0.2-1.3) mg/dL AST 25 (14-36) IU/L ALT 29 (<35) IU/L Alkaline Phosphatase 119 (38-126) U/L Total Protein 6.8 (6.3-8.2) g/dL Albumin 3.7 (3.5-5.0) g/dL Globulin 3.1 (1.7-4.1) g/dL Albumin/Globulin Ratio 1.2 (1.0-2.8) Serum , Qual (Negative) SARS-CoV-2 (PCR) (Negative) 04/08/21 04/08/21 Range/Units 20:22 20:42 WBC (4.5-11.0) X10^3/uL RBC (4.0-5.2) X10^6/uL Hgb (12.0-16.0) g/dL Hct (36-46) % MCV (80-100) fL MCH (26-34) PG MCHC (30-36) % RDW (11.6-14.8) % Plt Count (150-400) X10^3/uL Neut % (Auto) (50-75) % Lymph % (Auto) (25-40) % Glasscock % (Auto) (3-14) % Eos % (Auto) (2-4) % Baso % (Auto) (0-2) % Neut # (Auto) (7473-7434) /uL Lymph # (Auto) (0665-3929) /uL Glasscock # (Auto) (0-900) /uL Eos # (Auto) (0-450) /uL Baso # (Auto) (0-100) /uL Sodium (137-145) mmol/L Potassium (3.4-5.1) mmol/L Chloride (98-107) mmol/L Carbon Dioxide (22-32) mmol/L BUN (7-17) mg/dL Creatinine (0.52-1.04) mg/dL Estimated GFR (>60) mL/min BUN/Creatinine Ratio (6-22) Glucose (70-100) mg/dL Lactate (0.7-2.1) mmol/L Calcium (8.4-10.2) mg/dL Total Bilirubin (0.2-1.3) mg/dL AST (14-36) IU/L ALT (<35) IU/L Alkaline Phosphatase (38-126) U/L Total Protein (6.3-8.2) g/dL Albumin (3.5-5.0) g/dL Globulin (1.7-4.1) g/dL Albumin/Globulin Ratio (1.0-2.8) Serum , Qual Negative (Negative) SARS-CoV-2 (PCR) Negative (Negative) Imaging Data Chest x-ray: Radiologist's Impression: [address] [id number] ReportSigned Patient: Carina Vazquez EMR#: [id number]: 1985Acct:[id number]/Sex: 36 / FDate of Service: 04/08/21Loc: EDAccession Number: [id number] Procedure: XR chest 2V Ordering Provider: Rambo Ahmadi D.O. PROCEDURE: XR CHEST 2V INDICATIONS: shortness of breath TECHNIQUE: 2 views of the chest were acquired. COMPARISON: None. FINDINGS: Surgical changes and devices: None. Lungs and pleura: Lungs are clear. No pleural effusions or pneumothorax. Mediastinum: Mediastinal contours are normal. Heart size is normal. Bones and chest wall: No suspicious bony abnormalities. Soft tissues appear unremarkable. IMPRESSION: Normal for age, source of current shortness of breath symptoms is not seen. Dictated by: Lane Cifuentes M.D. on 04/08/2021 at 20:44 Approved by: Lane Cifuentes M.D. on 04/08/2021 at 20:45 ECG Data Attestation: I personally reviewed and interpreted this ECG as follows: Prior ECG tracings: not available for review Interpretation: Sinus rhythm Ventricular rate 96 Normal axis Normal QRS Normal QTC No ST T wave changes MDM Narrative Medical decision making narrative: Patient's exam is relatively unremarkable. Chest x-ray shows no signs of pneumonia. EKG is unremarkable. Does have a slight bump in her creatinine however feel this is an incidental finding and unrelated to why she is here in the emergency department. I feel patient can be discharged home without further workup. No indication for antibiotics. She is given return precautions. She expressed understanding agreement. Discharge Plan Departure Patient Disposition: Home Clinical Impression: Left ear pain, Lymphadenopathy Instructions: DI for Ear Pain-Adult Activity Restrictions/Additional Instructions: There is no sign of any infection that would require antibiotics today. I do recommend that you start on a antihistamine/decongestant such as Claritin or Gina or Zyrtec. These medications can be purchased [id number]. I do recommend that you talk with her primary doctor for a follow-up. Return to the emergency department for any new or worsening symptoms Prescriptions: No Action methocarbamol [Robaxin-750] 750 MG tablet 750 mg PO QIDP PRNQty: 40 RF: 0 ondansetron 4 mg tablet,disintegrating 4 mg PO Q6H PRN (Reason: nausea and vomiting) Qty: 7 RF: 0 hydrocodone-acetaminophen 5-325 mg tablet 1 tab PO Q6H PRN (Reason: pain) Qty: 6 RF: 0
[2021-04-08] MEDS: SODIUM CHLORIDE 0.9% 1,000 ML 1000 ML IV (21:35)
[2021-04-08 21:38] VITALS: BP 135/70; PULSE 89; RESP 24; O2SAT 99
[2021-04-08 21:58] VITALS: BP 135/70; PULSE 96; RESP 14; O2SAT 96
== END 2021-04-08 21:59 | disposition home or self-care (01) ==
PROVIDERS: Emergency Provider Emergency Medicine
DX: H92.02 Otalgia, left ear (principal); R59.1 Generalized enlarged lymph nodes; R06.02 Shortness of breath; R50.9 Fever, unspecified; R11.10 Vomiting, unspecified; Z20.822 Contact with and (suspected) exposure to COVID-19
CPT/HCPCS: 36415; 71046; 80053; 83605; 84703; 85025; 87635; 93005; 93010; 99284; C9803

== ENCOUNTER 2021-06-11 07:15 | Emergency (ER) | payer OTHER, SELFPAY ==
[2021-06-11 07:45] VITALS: BP 136/86; PULSE 99; RESP 18; TEMP 36.6; O2SAT 100; BMI 49.9
--- NOTE | 2021-06-11 07:56 | ED.SKABFB ---
HPI - Skin/Abscess/Foreign Bdy General Chief complaint: Skin/Abscess/Foreign Body Stated complaint: REACTION TO 2ND COVID VAC Time Seen by Provider: 06/11/21 07:41 Source: patient Mode of arrival: Ambulatory Limitations: no limitations History of Present Illness HPI narrative: Patient is a 36-year-old female who is here for evaluation of potential reaction to her 2nd COVID vaccination. She states she received a 2nd vaccination on Friday (3 days ago) last evening she started noticing redness over the area. She has outlined it with a marker over the course of the night and has extended since then. No fevers. Has never had a reaction in the past. Related Data Previous Rx's Medication Instructions Recorded methocarbamol 750 mg tablet 750 mg PO QIDP PRN #40 tab 05/10/17 (Robaxin-750) ondansetron 4 mg disintegrating 4 mg PO Q6H PRN #7 tab 11/14/20 tablet hydrocodone 5 mg-acetaminophen 325 1 tab PO Q6H PRN #6 tab 01/26/21 mg tablet cephalexin 500 mg capsule 500 mg PO QID 5 Days #20 cap 06/11/21 Allergies Allergy/AdvReac Type Severity Reaction Status Date / Time lidocaine Allergy Unknown Verified 11/14/20 16:44 ARTECAINE (PRESERVATIVE) Allergy Unknown Uncoded 11/14/20 16:44 preservative in lidocaine Allergy Unknown Uncoded 11/14/20 16:44 Review of Systems Constitutional Comments: No fevers Musculoskeletal Musculoskeletal: Reports system reviewed and no additional complaints, except as documented Integumentary/Breasts Comments: Redness to the right arm Hematologic/Lymphatic On Anticoagulants: No Patient History Medical History Arm pain, left Lumbar strain Post-operative pain Strain of left knee Surgical History (Updated 11/14/20 @ 15:04 by ANN-MARIE Horton) H/O knee surgery History of colon surgery History of right salpingo-oophorectomy Social History Smoking Status: Never smoker Smoking Status: Never smoker alcohol intake frequency: holidays/special occasions only Substance Use Type: does not use Exam Initial Vital Signs Initial Vital Signs: Vital Signs Temperature 97.8 F 06/11/21 07:45 Pulse Rate 99 H 06/11/21 07:45 Respiratory Rate 18 06/11/21 07:45 Blood Pressure 136/86 06/11/21 07:45 Pulse Oximetry 100 06/11/21 07:45 Const General: cooperative and healthy appearing [facility] Head: normal to inspection and normocephalic Eyes General: appearance normal, both eyes and all related structures Resp Effort & Inspection: normal respiratory effort Cardio Rate: regular rate Skin Other: Patient with a irregular area of redness over the right lateral deltoid. And extends anywhere from 7 cm to 3 cm from the site where it appears the injection was made. Neuro General: patient alert, patient awake and moves all extremities Extrem General: normal to inspection Psych Appearance: grossly normal and well kempt Course Vital Signs Vital signs: Vital Signs - 8 hr 06/11/21 07:45 Temperature 97.8 F Pulse Rate 99 H Respiratory Rate 18 Blood Pressure 136/86 Pulse Oximetry 100 MDM - Skin/Abscess/Foreign Bdy MDM Narrative Medical decision making narrative: The area of redness on her right shoulder could potentially be a irritation verses a cellulitis. Given the fact that it has worsened over night I would be more concerned about an infection. There is no crepitus under the area. No blistering. Will place on antibiotics. She was given return precautions and follow-up instructions. She expressed understanding and agreement Discharge Plan Departure Patient Disposition: Home Clinical Impression: Cellulitis Instructions: DI for Cellulitis -- Adult Activity Restrictions/Additional Instructions: Based on the appearance of the redness today I would be concerned about an infection. We will start you on antibiotics. You can also take Tylenol/ibuprofen. You can also put ice over the area. Contact your primary doctor for follow-up. Return to the emergency department for any new or worsening symptoms Prescriptions: New cephalexin 500 mg capsule 500 mg PO QID 5 Days Qty: 20 RF: 0 No Action methocarbamol [Robaxin-750] 750 MG tablet 750 mg PO QIDP PRNQty: 40 RF: 0 ondansetron 4 mg tablet,disintegrating 4 mg PO Q6H PRN (Reason: nausea and vomiting) Qty: 7 RF: 0 hydrocodone-acetaminophen 5-325 mg tablet 1 tab PO Q6H PRN (Reason: pain) Qty: 6 RF: 0
== END 2021-06-11 08:15 | disposition home or self-care (01) ==
PROVIDERS: Emergency Provider Emergency Medicine
DX: L03.113 Cellulitis of right upper limb (principal); T50.B95A Adverse effect of other viral vaccines, initial encounter
CPT/HCPCS: 99281

== ENCOUNTER 2021-06-29 17:12 | Emergency (ER) | payer OTHER, SELFPAY ==
[2021-06-29 17:35] VITALS: BP 143/73; PULSE 102; RESP 18; TEMP 36.5; O2SAT 96; BMI 50.7
--- NOTE | 2021-06-29 22:18 | ED_ITS ---
HPI - Back Pain/Injury General Chief Complaint: Back Pain/Injury Stated Complaint: BACK INJURY Time Seen by Provider: 06/29/21 21:57 Source: patient Limitations: no limitations History of Present Illness HPI Narrative: 36-year-old female nonsmoker without chronic medical problems presents for evaluation of back pain after an injury a few days ago. She states that about 2 weeks ago she slipped on some stairs and landed on her back but did not have significant pain in the aftermath. 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 This pain but sufficient to cause her to vomit once. She now has pain that seems to be made worse with walking and improves with rest. She denies any radiation of the pain and states that it is sharp and stabbing in nature. She has no fever or chills and takes no blood thinners. She denies any trouble controlling bowel or bladder and denies radiation into her lower extremities. Related Data Previous Rx's Medication Instructions Recorded methocarbamol 750 mg tablet 750 mg PO QIDP PRN #40 tab 05/10/17 (Robaxin-750) ondansetron 4 mg disintegrating 4 mg PO Q6H PRN #7 tab 11/14/20 tablet hydrocodone 5 mg-acetaminophen 325 1 tab PO Q6H PRN #6 tab 01/26/21 mg tablet diazepam 2 mg tablet (Valium) 2 mg PO BID-TID PRN #10 tab 06/29/21 hydrocodone 5 mg-acetaminophen 325 1 tab PO Q4-6H PRN #10 tab 06/29/21 mg tablet ketorolac 10 mg tablet 10 mg PO Q6H PRN #14 tab 06/29/21 Allergies Allergy/AdvReac Type Severity Reaction Status Date / Time lidocaine Allergy Unknown Verified 11/14/20 16:44 ARTECAINE (PRESERVATIVE) Allergy Unknown Uncoded 11/14/20 16:44 preservative in lidocaine Allergy Unknown Uncoded 11/14/20 16:44 Review of Systems Review of Systems Narrative: GENERAL: Denies chills, fatigue, malaise, fever, sweats. HEENT: Denies sinus pain, ear pain, sore throat, difficulty swallowing, dizziness. RESPIRATORY: Denies dyspnea, cough, wheezing, hemoptysis, sputum. CARDIOVASCULAR: Denies chest pain, palpitations, orthopnea, edema, GASTROINTESTINAL: Denies nausea, vomiting, abdominal pain, diarrhea, constipation, melena. : Denies dysuria, frequency, incontinence, hematuria, urinary retention. MUSCULOSKELETAL: See HPI SKIN: Denies rash, skin lesions, or other NEUROLOGIC: Denies weakness, headache, numbness, change in speech, confusion, seizures, incoordination. PSYCHIATRIC: No concerning psychosocial issues. 12 point review of systems is negative except for those stated above Patient History Medical History Arm pain, left Lumbar strain Post-operative pain Strain of left knee Surgical History H/O knee surgery History of colon surgery History of right salpingo-oophorectomy Social History Smoking Status: Never smoker Smoking Status: Never smoker alcohol intake frequency: holidays/special occasions only Substance Use Type: does not use Exam Narrative Exam Narrative: GEN: AOx3 and in mild distress EYES: Pupils are equal, round, and reactive to light and accommodation. Extraoccular muscles are intact bilaterally. There is no subconjunctival hem orrhage or exudate. CHEST: Lungs are clear to auscultation bilaterally and free of wheezes, rales, or rhonchi. Heart rate is regular rhythm, there are no murmurs, clicks, rubs, or gallops. There is no chest wall tenderness. ABD: Abdomen is soft and nontender. There is no guarding or rebound. Bowel sounds are normal in all 4 quadrants. There is no mass or organomegaly. EXT: Full painless ROM of all extremities with no loss of sensation or strength. BACK: peat shredder tender but free of any obvious external abnormalities. Patient exam notes decreased range of motion and muscle spasm, but no CVA tenderness, or vertebral point tenderness. There are no symptoms of cauda equina such as saddle anesthesia, and decreased reflexes, decreased sensation or strength. SKIN: Warm, pink, and dry. No erythema or rash Initial Vital Signs Initial Vital Signs: Vital Signs Temperature 97.7 F 06/29/21 17:35 Pulse Rate 102 H 06/29/21 17:35 Respiratory Rate 18 06/29/21 17:35 Blood Pressure 143/73 H 06/29/21 17:35 Pulse Oximetry 96 06/29/21 17:35 Course Orders Ordered: ED Orders 06/29/21 22:31 XR lumbar spine 2-3V Stat Discontinued Medications Hydrocodone Bitart/Acetaminophen (Hydrocodone/Acet 5/325 Prepack) 1 bottle MISC SEEINSTR ONE Stop: 06/29/21 22:32 Last Admin: 06/29/21 22:52 Dose: 1 bottle Documented by: DARÍO Ondansetron HCl (Ondansetron 4 Mg Odt Prepack) 1 bottle MISC SEEINSTR ONE Stop: 06/29/21 22:32 Last Admin: 06/29/21 22:52 Dose: 1 bottle Documented by: DARÍO Vital Signs Vital signs: Vital Signs - 8 hr 06/29/21 22:25 Pulse Rate 88 Respiratory Rate 16 Blood Pressure 147/81 H Pulse Oximetry 98 MDM - Back Pain/Injury MDM Narrative Medical decision making narrative: Multiple etiologies of back pain considered including; Epidural abscess, cauda equina, mass occupying lesion, and other considered and no red flags suggestive of a neurosurgical emergency are present. X-rays reassuring and no sign of fracture is noted. Return precautions given and questions answered to her apparent satisfaction Discharge Plan Departure Patient Disposition: Home Clinical Impression: Strain of lumbar region Qualifiers: Encounter type: initial encounter Qualified Code(s): S39.012A - Strain of muscle, fascia and tendon of lower back, initial encounter Instructions: DI for Low Back Pain Activity Restrictions/Additional Instructions: *You have been diagnosed with [low back pain, no significant findings on x-ray *What to do: *Please continue to take your regular medications as directed. [x ] New medication prescriptions sent to your pharmacy: [[facility] ] [ ] New medication written as a paper prescription [ ] No new medications given *Please follow up with your primary care provider in 2-3 days, call for an appointment. Let them know you were seen in the Emergency Department and that we ask that you be seen in follow up. We will electronically transmit a record of today's note if your PCP is in our system *If you do not have a primary care provider please contact the [facility] Resource line at [phone]. They will ask some questions about your medical history and help get you set up with a doctor in the community. *Return to Emergency Department if you should have any new, worsening or concerning symptoms, such as [fever greater than 101 F, shaking chills, wors ening pain, persistent vomiting, weakness of legs, trouble controlling bowel or bladder, or other bothersome symptoms] Prescriptions: New hydrocodone-acetaminophen 5-325 mg tablet 1 tab PO Q4-6H PRN (Reason: pain) Qty: 10 RF: 0 ketorolac 10 mg tablet 10 mg PO Q6H PRN (Reason: pain) Qty: 14 RF: 0 diazepam [Valium] 2 mg tablet 2 mg PO BID-TID PRN (Reason: muscle spasm) Qty: 10 RF: 0 No Action methocarbamol [Robaxin-750] 750 MG tablet 750 mg PO QIDP PRNQty: 40 RF: 0 ondansetron 4 mg tablet,disintegrating 4 mg PO Q6H PRN (Reason: nausea and vomiting) Qty: 7 RF: 0 hydrocodone-acetaminophen 5-325 mg tablet 1 tab PO Q6H PRN (Reason: pain) Qty: 6 RF: 0
[2021-06-29 22:25] VITALS: BP 147/81; PULSE 88; RESP 16; O2SAT 98
--- NOTE | 2021-06-29 22:31 | DI.RAD.S_ITS ---
PROCEDURE: XR LUMBAR SPINE 2-3V INDICATIONS: fall with midline back pain TECHNIQUE: 3 views of the lumbar spine were acquired. COMPARISON: Located Within [facility], , L-SPINE 2-3 VIEWS, 05/10/2017, 20:20. FINDINGS: Bones: 5 [id number] vertebrae are present. Mild levoconvex scoliotic curvature is noted. No vertebral body compression fractures. No suspicious bony lesions. Mild loss of disc height is seen at L5-S1. The disc heights otherwise appear well-preserved. Soft tissues: Overlying bowel gas pattern is normal. There is a 7 mm calcification seen involving the right upper quadrant. IMPRESSION: Focal L5-S1 disc space narrowing. Mild levoconvex scoliotic curvature is noted. Likely nonobstructing right-sided kidney stone. Note: No significant discrepancy from the preliminary report. Dictated by: Bo Escoto M.D. on 06/30/2021 at 7:34 Approved by: Bo Escoto M.D. on 06/30/2021 at 7:35
[2021-06-29] MEDS: ONDANSETRON 4 MG ODT PREPACK 1 BOTTLE MISC (22:52)
[2021-06-29] MEDS: HYDROCODONE/ACET 5/325 PREPACK 1 BOTTLE MISC (22:52)
== END 2021-06-29 23:42 | disposition home or self-care (01) ==
PROVIDERS: Emergency Provider Emergency Medicine
DX: S39.012A Strain of muscle, fascia and tendon of lower back, initial encounter (principal); W19.XXXA Unspecified fall, initial encounter
CPT/HCPCS: 72100; 99283

== ENCOUNTER 2021-07-28 04:13 | Emergency (ER) | payer OTHER, SELFPAY ==
[2021-07-28 04:15] VITALS: BP 155/108; PULSE 99; RESP 18; TEMP 35.8; O2SAT 94; BMI 49.9
--- NOTE | 2021-07-28 04:32 | ED_ITS ---
HPI - Nausea/Vomiting/Diarrhea General Chief complaint: Nausea/Vomiting/Diarrhea Stated complaint: kidney stone, feels like insides exploding Time Seen by Provider: 07/28/21 04:15 Source: patient Mode of arrival: Ambulatory Limitations: no limitations History of Present Illness HPI Narrative: Patient is a 36-year-old female here for evaluation of right- sided flank/back/abdominal discomfort. She states that it woke her from sleep prior to arrival here in the ER. States she has had a kidney stone in the past. Was several years ago. She did pass it on her own. States this feels somewhat like that. When she was here a couple days ago for lower back discomfort she had an x-ray performed of her lower back and there was an incidental finding of a 7 mm calcification in the area of her right kidney. She denies any urinary symptoms. Is vomiting because the discomfort. No fevers. No change in bowel habits. Related Data Previous Rx's Medication Instructions Recorded methocarbamol 750 mg tablet 750 mg PO QIDP PRN #40 tab 05/10/17 (Robaxin-750) ondansetron 4 mg disintegrating 4 mg PO Q6H PRN #7 tab 11/14/20 tablet hydrocodone 5 mg-acetaminophen 325 1 tab PO Q6H PRN #6 tab 01/26/21 mg tablet diazepam 2 mg tablet (Valium) 2 mg PO BID-TID PRN #10 tab 06/29/21 hydrocodone 5 mg-acetaminophen 325 1 tab PO Q4-6H PRN #10 tab 06/29/21 mg tablet ketorolac 10 mg tablet 10 mg PO Q6H PRN #14 tab 06/29/21 hydrocodone 5 mg-acetaminophen 325 1 tab PO Q4H PRN #20 tab 07/28/21 mg tablet ondansetron 4 mg disintegrating 4 mg PO Q6H PRN #20 tab 07/28/21 tablet tamsulosin 0.4 mg capsule (Flomax) 0.4 mg PO DAILY #14 cap 07/28/21 Allergies Allergy/AdvReac Type Severity Reaction Status Date / Time lidocaine Allergy Unknown Verified 11/14/20 16:44 ARTECAINE (PRESERVATIVE) Allergy Unknown Uncoded 11/14/20 16:44 preservative in lidocaine Allergy Unknown Uncoded 11/14/20 16:44 Review of Systems Gastrointestinal Gastrointestinal: Reports as per HPI and Reports system reviewed and no additional complaints, except as documented Genitourinary Genitourinary: Reports system reviewed and no additional complaints, except as documented and Reports as per HPI Musculoskeletal Musculoskeletal: Reports system reviewed and no additional complaints, except as documented and Reports as per HPI Integumentary/Breasts Skin/Breast: Reports system reviewed and no additional complaints, except as documented Hematologic/Lymphatic On Anticoagulants: No Patient History Medical History Arm pain, left Lumbar strain Post-operative pain Strain of left knee Surgical History H/O knee surgery History of colon surgery History of right salpingo-oophorectomy Social History Smoking Status: Never smoker Smoking Status: Never smoker alcohol intake frequency: holidays/special occasions only Substance Use Type: does not use Exam Initial Vital Signs Initial Vital Signs: Vital Signs Temperature 96.4 F L 07/28/21 04:15 Pulse Rate 99 H 07/28/21 04:15 Respiratory Rate 18 07/28/21 04:15 Blood Pressure 155/108 H 07/28/21 04:15 Pulse Oximetry 94 07/28/21 04:15 HENMT Head: normal to inspection and normocephalic Resp Effort & Inspection: normal respiratory effort Cardio Rate: regular rate GI Inspection: normal to inspection Back/Spine/Pelvis Other: Mild tenderness to the right CVA. Skin General: no rashes or lesions noted and elasticity normal Neuro General: patient alert, patient awake and moves all extremities Extrem General: normal to inspection Psych Appearance: grossly normal and well kempt Course Orders Ordered: ED Orders 07/28/21 04:26 Basic Metabolic Panel Stat Complete Blood Count AUTO DIFF Stat 07/28/21 04:47 CT kidney ureter bladder (KUB) Stat Discontinued Medications Hydromorphone HCl (Hydromorphone 1 Mg Inj) 1 mg IV NOW ONE Stop: 07/28/21 04:29 Last Admin: 07/28/21 04:37 Dose: 1 mg Documented by: KGALLAG Hydromorphone HCl (Hydromorphone 0.5 Mg Inj) 0.5 mg IV NOW ONE Stop: 07/28/21 05:28 Last Admin: 07/28/21 05:36 Dose: 0.5 mg Documented by: DARÍO Hydromorphone HCl (Hydromorphone 0.5 Mg Inj) 0.5 mg IV NOW ONE Stop: 07/28/21 06:19 Last Admin: 07/28/21 06:22 Dose: 0.5 mg Documented by: DARÍO Ketorolac Tromethamine (Ketorolac 30 Mg/Ml Vial) 30 mg IV NOW ONE Stop: 07/28/21 04:29 Last Admin: 07/28/21 04:38 Dose: 30 mg Documented by: DARÍO Ondansetron HCl (Ondansetron 4 Mg/2 Ml Inj) 4 mg IV NOW ONE Stop: 07/28/21 04:32 Last Admin: 07/28/21 04:37 Dose: 4 mg Documented by: DARÍO Ondansetron HCl (Ondansetron 4 Mg/2 Ml Inj) 4 mg IV NOW ONE Stop: 07/28/21 06:34 Vital Signs Vital signs: Vital Signs - 8 hr 07/28/21 04:15 Temperature 96.4 F L Pulse Rate 99 H Respiratory Rate 18 Blood Pressure 155/108 H Pulse Oximetry 94 MDM - Nausea/Vomiting/Diarrhea Medical Records Attestation: I reviewed the patient's medical records. Lab Data Attestation: I reviewed the patient's lab results. Result diagrams: 07/28/21 04:26 07/28/21 04:26 Labs: Lab Results 07/28/21 07/28/21 Range/Units 04:26 04:26 WBC 10.4 (4.5-11.0) X10^3/uL RBC 4.89 (4.0-5.2) X10^6/uL Hgb 13.3 (12.0-16.0) g/dL Hct 40.6 (36-46) % MCV 83.0 (80-100) fL MCH 27.2 (26-34) PG MCHC 32.8 (30-36) % RDW 14.8 (11.6-14.8) % Plt Count 290 (150-400) X10^3/uL Neut % (Auto) 75.8 H (50-75) % Lymph % (Auto) 16.7 L (25-40) % [place] % (Auto) 6.1 (3-14) % Eos % (Auto) 1.1 L (2-4) % Baso % (Auto) 0.3 (0-2) % Neut # (Auto) 7900 H (4297-5854) /uL Lymph # (Auto) 1700 (4837-0702) /uL [place] # (Auto) 600 (0-900) /uL Eos # (Auto) 100 (0-450) /uL Baso # (Auto) 0 (0-100) /uL Sodium 137 (137-145) mmol/L Potassium 4.3 (3.4-5.1) mmol/L Chloride 104 (98-107) mmol/L Carbon Dioxide 26 (22-32) mmol/L BUN 18 H (7-17) mg/dL Creatinine 1.18 H (0.52-1.04) mg/dL Estimated GFR 52.1 L (>60) mL/min BUN/Creatinine Ratio 15.3 (6-22) Glucose 136 H (70-100) mg/dL Calcium 9.1 (8.4-10.2) mg/dL Point of Care Testing Test Results Negative Urine Dip Bedside Urine Glucose Negative Bedside Urine Bilirubin - Negative Bedside Urine Ketone - Negative Urine Specific [place] 1.030 Bedside Urine Occult Blood - Negative Bedside Urine pH 6 Bedside Urine Protein - Negative Bedside Urine Urobilinogen - Negative Bedside Urine Nitrite - Negative Bedside Urine Leukocytes - Negative Esterase Imaging Data CT scan - abdomen/pelvis: Radiologist's Impression: 7 mm obstructing calculus right UPJ with mild hydronephrosis and renal edema on the right No evidence of obstructive uropathy on the left. Decompressed urinary bladder. [facility] Narrative Medical decision making narrative: Patient's urinalysis today does not show any signs of an infection. She has no blood in her urine. Her renal function today is actually better from what it was a couple months ago. She is afebrile. CT scan does show the 7 mm stone in the right UPJ which is probably will was seen on the x-ray a couple days ago. Patient received multiple doses of pain medication. Patient does not require emergent urologic consultation given her labs today however the patient and her mother who is at bedside were given strict return precautions. Given the size of the stone we will also start her on Flomax. She was given return precautions and follow-up instructions. She expressed understanding and agreement. Discharge Plan Departure Patient Disposition: Home Clinical Impression: Renal colic on right side Instructions: Kidney Stones -- Adult Activity Restrictions/Additional Instructions: Your urinalysis today did not show any signs of infection and your kidney function today is slightly abnormal but is actually better than labs that were drawn in March of this year. The CT scan does show a fairly large 7 mm kidney stone on your right side. Take the pain medication and nausea medication in the Flomax as directed. If your symptoms worsen or you cannot tolerate oral intake or your pain is not controlled with the medications were you start to get fevers please return to the emergency department for further evaluation. Also re commend that you contact the Urology Department here at the hospital with the number provided below for an appointment within the next week. Prescriptions: New hydrocodone-acetaminophen 5-325 mg tablet 1 tab PO Q4H PRN (Reason: pain) Qty: 20 RF: 0 ondansetron 4 mg tablet,disintegrating 4 mg PO Q6H PRN (Reason: nausea and vomiting) Qty: 20 RF: 0 tamsulosin [Flomax] 0.4 mg capsule 0.4 mg PO DAILY Qty: 14 RF: 0 No Action methocarbamol [Robaxin-750] 750 MG tablet 750 mg PO QIDP PRNQty: 40 RF: 0 ondansetron 4 mg tablet,disintegrating 4 mg PO Q6H PRN (Reason: nausea and vomiting) Qty: 7 RF: 0 hydrocodone-acetaminophen 5-325 mg tablet 1 tab PO Q6H PRN (Reason: pain) Qty: 6 RF: 0 hydrocodone-acetaminophen 5-325 mg tablet 1 tab PO Q4-6H PRN (Reason: pain) Qty: 10 RF: 0 ketorolac 10 mg tablet 10 mg PO Q6H PRN (Reason: pain) Qty: 14 RF: 0 diazepam [Valium] 2 mg tablet 2 mg PO BID-TID PRN (Reason: muscle spasm) Qty: 10 RF: 0 Referrals: Mavis Carvalho MD [Physician] -
[2021-07-28] MEDS: HYDROMORPHONE 1 MG INJ IV (04:37)
[2021-07-28] MEDS: ONDANSETRON 4 MG/2 ML INJ IV ×2 (04:37→06:56)
[2021-07-28] MEDS: KETOROLAC 30 MG/ML VIAL IV (04:38)
[2021-07-28 04:43] LABS: Add Manual Diff / Slide Review NO; Basophils Absolute Auto 0 /uL (0-100); Basophils Percent Auto 0.3 % (0-2); Eosinophils Absolute Auto 100 /uL (0-450); Eosinophils Percent Auto 1.1 % (2-4); Hematocrit 40.6 % (36-46); Hemoglobin 13.3 g/dL (12.0-16.0); Lymphocytes Absolute Auto 1700 /uL (1100-4500); Lymphocytes Percent Auto 16.7 % (25-40); Mean Corpuscular HGB Conc 32.8 % (30-36); Mean Corpuscular Hemoglobin 27.2 PG (26-34); Monocytes Absolute Auto 600 /uL (0-900); Monocytes Percent Auto 6.1 % (3-14); Neutrophils Absolute Auto 7900 /uL (1500-7000); Neutrophils Percent Auto 75.8 % (50-75); Platelet Count 290 X10^3/uL (150-400); Red Blood Cell Count 4.89 X10^6/uL (4.0-5.2); Red Cell Distribution Width 14.8 % (11.6-14.8); White Blood Cell Count 10.4 X10^3/uL (4.5-11.0)
[2021-07-28 04:44] LABS: BUN Creatinine Ratio 15.3 (6-22); Blood Urea Nitrogen 18 mg/dL (7-17); Calcium 9.1 mg/dL (8.4-10.2); Carbon Dioxide 26 mmol/L (22-32); Chloride 104 mmol/L (98-107); Estimated Glomerular Filt Rate 52.1 mL/min (>60); Glucose 136 mg/dL (70-100); HEMOLYSIS 36 (0-50); Potassium 4.3 mmol/L (3.4-5.1); Sodium 137 mmol/L (137-145)
--- NOTE | 2021-07-28 04:47 | DI.CT.S_ITS ---
PROCEDURE: CT KIDNEY URETER BLADDER (KUB) INDICATIONS: Right-sided flank pain eval for stone TECHNIQUE: Axial sections were acquired from the lung bases to the pubic symphysis. Coronal and sagittal reformats were performed. For radiation dose reduction, the following was used: automated exposure control, adjustment of mA and/or kV according to patient size. COMPARISON: None. FINDINGS: Image quality: Excellent. Lung bases: Unremarkable. Heart: No significant findings. URINARY: Right Kidney: 7 mm calculus right ureterovesical junction results in mild right hydronephrosis. Right Ureter: No hydroureter. Left Kidney: No stones or hydronephrosis. Left Ureter: No hydroureter. Bladder: Normal wall thickness. No stones. ABDOMEN: Liver: Unremarkable. Gallbladder: Unremarkable. Biliary ducts: Unremarkable. Pancreas: Unremarkable. Spleen: Unremarkable. Adrenal Glands: Unremarkable. Stomach and Bowel: Stomach, small bowel loops, and colon are unremarkable. Peritoneum: No abnormal intraperitoneal fluid. No free air. Ventral Wall: No hernia. Abdominal Nodes: No enlarged retroperitoneal or mesenteric lymph nodes. Vessels: Aorta and inferior vena cava are normal in size. PELVIS: Pelvic Organs: Unremarkable. Pelvic Nodes: Unremarkable. Miscellaneous: No inguinal hernias are seen. Bones: Unremarkable. IMPRESSION: Mild right hydronephrosis results from 7 mm calculus in right ureteropelvic junction. Note: Final report is concordant with preliminary interpretation by [facility] Approved by: Seb Smith M.D. on 07/28/2021 at 6:34
--- NOTE | 2021-07-28 05:35 | PC.NURSE ---
Received call from [employer], stating pt had called 911 stating, she was being held against her will. Ensure [employer] pt was were she was when they left the facility.
[2021-07-28] MEDS: HYDROMORPHONE 0.5 MG INJ IV ×2 (05:36→06:22)
[2021-07-28 06:56] VITALS: BP 122/72; PULSE 75; O2SAT 96
[2021-07-28] MEDS: HYDROCODONE/ACET 5/325 PREPACK 1 BOTTLE MISC (06:56)
[2021-07-28] MEDS: ONDANSETRON 4 MG ODT PREPACK 1 BOTTLE MISC (06:56)
== END 2021-07-28 07:05 | disposition home or self-care (01) ==
PROVIDERS: Emergency Provider Emergency Medicine
DX: N23 Unspecified renal colic (principal); N20.0 Calculus of kidney; M54.50 Low back pain, unspecified; R11.10 Vomiting, unspecified
CPT/HCPCS: 36415; 74176; 80048; 81003; 81025; 85025; 96374; 96375; 96376; 99284; J1170; J1885; J2405

== ENCOUNTER 2021-12-11 08:43 | Emergency (ER) | payer OTHER, SELFPAY ==
[2021-12-11] VITALS (7 sets, daily range): BP systolic 118–156; BP diastolic 75–96; PULSE 73–86; RESP 18; TEMP 36.7; O2SAT 95–99; BMI 48.2
--- NOTE | 2021-12-11 09:51 | ED_ITS ---
HPI - Female Genitourinary General Chief complaint: Urogenital-Female Stated complaint: Right side low back pain/kidney stone 1day Time Seen by Provider: 12/11/21 09:41 Source: patient Mode of arrival: Ambulatory History of Present Illness HPI Narrative: 36-year-old female nonsmoker with history of kidney stones presents with a chief complaint of severe right flank pain that radiates into her right groin upon waking today. She states that it is sharp and stabbing and consistent with her episodes where it severely worsens without any obvious provocation or palliation. She has had nausea but no vomiting. She denies any fever or chi lls. She has had no dysuria, frequency or urgency and denies any change in bowel habits. She has had kidney stones which required stenting in the past, as recently as July and was assisted by Urology at [facility]. Related Data Previous Rx's Medication Instructions Recorded methocarbamol 750 mg tablet 750 mg PO QIDP PRN #40 tab 05/10/17 (Robaxin-750) ondansetron 4 mg disintegrating 4 mg PO Q6H PRN #7 tab 11/14/20 tablet hydrocodone 5 mg-acetaminophen 325 1 tab PO Q6H PRN #6 tab 01/26/21 mg tablet diazepam 2 mg tablet (Valium) 2 mg PO BID-TID PRN #10 tab 06/29/21 hydrocodone 5 mg-acetaminophen 325 1 tab PO Q4-6H PRN #10 tab 06/29/21 mg tablet ketorolac 10 mg tablet 10 mg PO Q6H PRN #14 tab 06/29/21 hydrocodone 5 mg-acetaminophen 325 1 tab PO Q4H PRN #20 tab 07/28/21 mg tablet tamsulosin 0.4 mg capsule (Flomax) 0.4 mg PO DAILY #14 cap 07/28/21 ketorolac 10 mg tablet 10 mg PO Q6H PRN #20 tab 12/11/21 oxycodone 5 mg tablet 5 mg PO Q4-6H PRN #10 tab 12/11/21 tamsulosin 0.4 mg capsule (Flomax) 0.4 mg PO DAILY #30 cap 12/11/21 tramadol 50 mg tablet 50 mg PO Q6H PRN #20 tab 12/11/21 Allergies Allergy/AdvReac Type Severity Reaction Status Date / Time lidocaine Allergy Unknown Verified 12/11/21 09:39 ARTECAINE (PRESERVATIVE) Allergy Unknown Uncoded 11/14/20 16:44 preservative in lidocaine Allergy Unknown Uncoded 11/14/20 16:44 Review of Systems Review of Systems Narrative: GENERAL: Denies chills, fatigue, malaise, fever, sweats. HEENT: Denies sinus pain, ear pain, sore throat, difficulty swallowing, dizziness. RESPIRATORY: Denies dyspnea, cough, wheezing, hemoptysis, sputum. CARDIOVASCULAR: Denies chest pain, palpitations, orthopnea, edema, GASTROINTESTINAL: Denies nausea, vomiting, abdominal pain, diarrhea, constipation, melena. : See HPI MUSCULOSKELETAL: denies weakness, joint pain, or bony pain SKIN: Denies rash, skin lesions, or other NEUROLOGIC: Denies weakness, headache, numbness, change in speech, confusion, seizures, incoordination. PSYCHIATRIC: No concerning psychosocial issues. 12 point review of systems is negative except for those stated above Patient History Medical History Arm pain, left Lumbar strain Post-operative pain Strain of left knee Surgical History H/O knee surgery History of colon surgery History of right salpingo-oophorectomy alcohol intake frequency: holidays/special occasions only Substance Use Type: does not use Exam Narrative Exam Narrative: GENERAL: [36 year old patient appears stated age. Well-developed patient, in obvious distress, tearful, holding an emesis bag, rubbing her right flank HEAD: Atraumatic. Normocephalic. EYES: Pupils equal round and reactive. Extraocular motions intact. No scleral icterus. No injection or drainage. ENT: Nose without bleeding, purulent drainage. Throat without erythema, tonsillar hypertrophy or exudate. Airway patent. NECK: Trachea midline. Non tender CARDIOVASCULAR: Regular rate and rhythm without murmurs, gallops, or rubs. RESPIRATORY: Clear to auscultation. Breath sounds equal bilaterally. No wheezes, rales, or rhonchi. GASTROINTESTINAL: Abdomen soft, non-tender, nondistended. EXTREMITIES: No edema or joint tenderness. BACK: Nontender without deformity or crepitance. No flank tenderness. NEURO: AOx3. SKIN: No rash or erythema of visible areas Initial Vital Signs Initial Vital Signs: Vital Signs Temperature 98.1 F 12/11/21 09:35 Pulse Rate 78 12/11/21 09:35 Respiratory Rate 18 12/11/21 09:35 Blood Pressure 156/96 H 12/11/21 09:35 Pulse Oximetry 99 12/11/21 09:35 Course Orders Ordered: Discontinued Medications Sodium Chloride (Normal Saline 0.9%) 1,000 mls @ 1,000 mls/hr IV BOLUS ONE Stop: 12/11/21 10:49 Last Infusion: 12/11/21 12:46 Dose: 0 mls/hr Documented by: Admin: 12/11/21 11:18 Dose: 1,000 mls/hr Documented by: OBED Ketorolac Tromethamine (Ketorolac 30 Mg/Ml Vial) 15 mg IV NOW ONE Stop: 12/11/21 09:51 Last Admin: 12/11/21 11:18 Dose: 15 mg Documented by: OBED Ondansetron HCl (Ondansetron 4 Mg/2 Ml Inj) 4 mg IV NOW ONE Stop: 12/11/21 09:40 Last Admin: 12/11/21 11:17 Dose: 4 mg Documented by: OBED Ondansetron HCl (Ondansetron 4 Mg/2 Ml Inj) 4 mg IV NOW ONE Stop: 12/11/21 09:51 Last Admin: 12/11/21 11:18 Dose: Not Given Documented by: OBED Vital Signs Vital signs: Vital Signs - 8 hr 12/11/21 09:35 12/11/21 09:56 12/11/21 10:00 Temperature 98.1 F Pulse Rate 78 86 73 Respiratory Rate 18 Blood Pressure 156/96 H 143/90 H 143/86 H Pulse Oximetry 99 97 97 12/11/21 10:30 12/11/21 11:00 12/11/21 11:30 Temperature Pulse Rate 83 84 77 Respiratory Rate Blood Pressure 142/78 H Pulse Oximetry 95 99 99 MDM - Female Genitourinary Lab Data Result diagrams: 12/11/21 11:25 12/11/21 11:25 Labs: Lab Results 12/11/21 12/11/21 12/11/21 Range/Units 10:49 11:25 11:25 WBC 9.7 (4.5-11.0) X10^3/uL RBC 4.52 (4.0-5.2) X10^6/uL Hgb 12.4 (12.0-16.0) g/dL Hct 37.5 (36-46) % MCV 82.9 (80-100) fL MCH 27.5 (26-34) PG MCHC 33.2 (30-36) % RDW 13.9 (11.6-14.8) % Plt Count 264 (150-400) X10^3/uL Neut % (Auto) 86.1 H (50-75) % Lymph % (Auto) 8.7 L (25-40) % [place] % (Auto) 4.5 (3-14) % Eos % (Auto) 0.3 L (2-4) % Baso % (Auto) 0.4 (0-2) % Neut # (Auto) 8300 H (0073-7573) /uL Lymph # (Auto) 800 L (3073-3284) /uL [place] # (Auto) 400 (0-900) /uL Eos # (Auto) 0 (0-450) /uL Baso # (Auto) 0 (0-100) /uL Sodium 136 L (137-145) mmol/L Potassium 4.5 (3.4-5.1) mmol/L Chloride 104 (98-107) mmol/L Carbon Dioxide 27 (22-32) mmol/L BUN 18 H (7-17) mg/dL Creatinine 1.15 H (0.52-1.04) mg/dL Estimated GFR 53.7 L (>60) mL/min BUN/Creatinine Ratio 15.7 (6-22) Glucose 109 H (70-100) mg/dL Calcium 8.8 (8.4-10.2) mg/dL Total Bilirubin 0.7 (0.2-1.3) mg/dL AST 28 (14-36) IU/L ALT 33 (<35) IU/L Alkaline Phosphatase 90 (38-126) U/L Total Protein 7.5 (6.3-8.2) g/dL Albumin 4.3 (3.5-5.0) g/dL Globulin 3.2 (1.7-4.1) g/dL Albumin/Globulin Ratio 1.3 (1.0-2.8) Lipase 37 (23-300) U/L Urine RBC 30-100/hpf H (0-5/HPF) Urine WBC None seen (0-5/HPF) Urine Bacteria None seen (None) Ur Culture Indicated? Cult not indicated Point of Care Testing Test Results Negative Urine Dip Bedside Urine Glucose Negative Bedside Urine Bilirubin - Negative Bedside Urine Ketone +/- 5 Urine Specific [place] 1.020 Bedside Urine Occult Blood +++ Bedside Urine pH 6.5 Bedside Urine Protein +/- 15 Bedside Urine Urobilinogen - Negative Bedside Urine Nitrite - Negative Bedside Urine Leukocytes - Negative Esterase Imaging Data CT scan - abdomen/pelvis: Radiologist's Impression: [address] [address] [address] Scan Report Signed Patient: Carina Vazquez MR#: [id number] : 1985 Acct:[id number] Age/Sex: 36 / F Date of Service: 12/11/21 Loc: ED Accession Number: [id number] ?? Procedure: CT kidney ureter bladder (KUB) Ordering Provider: Geo Crow D.O. PROCEDURE:? CT KIDNEY URETER BLADDER (KUB) ? INDICATIONS:? severe right flank pain ? TECHNIQUE:? Axial sections were acquired from the lung bases to the pubic symphysis.? Coronal and sagittal reformats were performed.? For radiation dose reduction, the following was used: ?automated exposure control, adjustment of mA and/or kV according to patient size.? ? COMPARISON:? [facility], CT, CT ANGIO CHEST PE, 08/01/2021, 15:26.? [facility], CT, CT KIDNEY URETER BLADDER (KUB), 07/28/2021, 5:14.? [facility], CR, XR RETROGRADE UROGRAPHY, 09/12/2021, 9:25. ? FINDINGS:? Image quality:? This study is mildly limited by body habitus.? ? Lung bases:? Unremarkable.? ? Heart:? No significant findings. ? URINARY: Right Kidney:? There is [id number] right-sided hydronephrosis.? The right kidney is self appears swollen and there is mild perinephric fat stranding.? No nonobstructing stones are seen within kidney. Right Ureter:? Within the right proximal ureter, within the region of the right ureteropelvic junction, there is an obstructing stone seen that measures up to 7 mm.? More distally, there is no hydroureter or additional stones seen. ? Left Kidney: ? No stones or hydronephrosis. Left Ureter:? No hydroureter.? ? Bladder:? Normal wall thickness. No stones. ? ? ? ABDOMEN: Liver:? Unremarkable.? ? Gallbladder:? Unremarkable.? ? Biliary ducts:? Unremarkable.? ? Pancreas:? Unremarkable.? ? Spleen:? Unremarkable.? ? Adrenal Glands:? Unremarkable.? ? ? Stomach and Bowel:? Stomach, small bowel loops, and colon are unremarkable.? Appendectomy changes are seen. Peritoneum:? No abnormal intraperitoneal fluid.? No free air.? ? Ventral Wall: A mild periumbilical hernia is seen, containing fat. ? Abdominal Nodes:? No enlarged retroperitoneal or mesenteric lymph nodes.? Vessels:? Aorta and inferior vena cava are normal in size.? ? PELVIS: Pelvic Organs:? The uterus appears normal for age.? No adnexal masses are seen.? Pelvic Nodes: Unremarkable. Miscellaneous: No inguinal hernias are seen. ? ? ? Bones:? Unremarkable. ? IMPRESSION:? ? There is an obstructing 7 mm stone seen within the region of the right ureteropelvic junction, with associated hydronephrosis and perinephric fat stranding.? The degree of obstruction is more prominent on the current study than on the 07/28/2021 examination. ? No nonobstructing kidney stones are seen on either side.? ? No left-sided hydronephrosis is seen.? Incidental note is made of: Appendectomy Mild fat containing periumbilical hernia ? Dictated by: Bo Escoto M.D. on 12/11/2021 at 10:16 ? ? Approved by: Bo Escoto M.D. on 12/11/2021 at 10:20 ? MDM Narrative Medical decision making narrative: Patient with reassuring history and physical exam. No signs of sepsis. No renal failure. Pain well controlled, patient tolerating orals. Return precautions discussed and questions answered to their apparent satisfaction Discharge Plan Departure Patient Disposition: Home Clinical Impression: Kidney stone Instructions: DI for Kidney Stones Activity Restrictions/Additional Instructions: *You have been diagnosed with [right-sided kidney stone] *What to do: *Please continue to take your regular medications as directed. [x ] New medication prescriptions sent to your pharmacy: [[facility]] [ ] New medication written as a paper prescription [ ] No new medications given *Please follow up with your Dr. Carvalho in 2-3 days, call for an appointment. Let them know you were seen in the Emergency Department and that we ask that you be seen in follow up. We will electronically transmit a record of today's note if your PCP is in our system *Return to Emergency Department if you should have any new, worsening or concerning symptoms, such as [fever greater than 101 F, shaking chills, worsening pain, persistent vomiting or other bothersome symptoms] You have been prescribed a short course of narcotic medications. These are potentially dangerous and addictive medications that should be used carefully. While on these medications you cannot drive or operate heavy machinery. Additionally, you cannot sign legal documents or perform any duties such as this. Many people get constipated on narcotic medications so it would be advisable to discuss stool softeners with the pharmacist when you picker operator your prescription. Please understand that we cannot provide further refills of narcotics or contro lled substances through the ED and your pain management will need to be through your Primary Care Provider Prescriptions: New tramadol 50 mg tablet 50 mg PO Q6H PRN (Reason: pain) Qty: 20 0RF tamsulosin [Flomax] 0.4 mg capsule 0.4 mg PO DAILY Qty: 30 0RF ketorolac 10 mg tablet 10 mg PO Q6H PRN (Reason: pain) Qty: 20 0RF oxycodone 5 mg tablet 5 mg PO Q4-6H PRN (Reason: pain) Qty: 10 0RF No Action methocarbamol [Robaxin-750] 750 MG tablet 750 mg PO QIDP PRNQty: 40 0RF ondansetron 4 mg tablet,disintegrating 4 mg PO Q6H PRN (Reason: nausea and vomiting) Qty: 7 0RF hydrocodone-acetaminophen 5-325 mg tablet 1 tab PO Q6H PRN (Reason: pain) Qty: 6 0RF hydrocodone-acetaminophen 5-325 mg tablet 1 tab PO Q4-6H PRN (Reason: pain) Qty: 10 0RF ketorolac 10 mg tablet 10 mg PO Q6H PRN (Reason: pain) Qty: 14 0RF diazepam [Valium] 2 mg tablet 2 mg PO BID-TID PRN (Reason: muscle spasm) Qty: 10 0RF hydrocodone-acetaminophen 5-325 mg tablet 1 tab PO Q4H PRN (Reason: pain) Qty: 20 0RF tamsulosin [Flomax] 0.4 mg capsule 0.4 mg PO DAILY Qty: 14 0RF Referrals: Mavis Carvalho MD [Physician] - Stand Alone Forms: Work Release Note
--- NOTE | 2021-12-11 10:42 | DI.CT.S_ITS ---
PROCEDURE: CT KIDNEY URETER BLADDER (KUB) INDICATIONS: severe right flank pain TECHNIQUE: Axial sections were acquired from the lung bases to the pubic symphysis. Coronal and sagittal reformats were performed. For radiation dose reduction, the following was used: automated exposure control, adjustment of mA and/or kV according to patient size. COMPARISON: [facility], CT, CT ANGIO CHEST PE, 08/01/2021, 15:26. [facility], CT, CT KIDNEY URETER BLADDER (KUB), 07/28/2021, 5:14. [facility], CR, XR RETROGRADE UROGRAPHY, 09/12/2021, 9:25. FINDINGS: Image quality: This study is mildly limited by body habitus. Lung bases: Unremarkable. Heart: No significant findings. URINARY: Right Kidney: There is [id number] right-sided hydronephrosis. The right kidney is self appears swollen and there is mild perinephric fat stranding. No nonobstructing stones are seen within kidney. Right Ureter: Within the right proximal ureter, within the region of the right ureteropelvic junction, there is an obstructing stone seen that measures up to 7 mm. More distally, there is no hydroureter or additional stones seen. Left Kidney: No stones or hydronephrosis. Left Ureter: No hydroureter. Bladder: Normal wall thickness. No stones. ABDOMEN: Liver: Unremarkable. Gallbladder: Unremarkable. Biliary ducts: Unremarkable. Pancreas: Unremarkable. Spleen: Unremarkable. Adrenal Glands: Unremarkable. Stomach and Bowel: Stomach, small bowel loops, and colon are unremarkable. Appendectomy changes are seen. Peritoneum: No abnormal intraperitoneal fluid. No free air. Ventral Wall: A mild periumbilical hernia is seen, containing fat. Abdominal Nodes: No enlarged retroperitoneal or mesenteric lymph nodes. Vessels: Aorta and inferior vena cava are normal in size. PELVIS: Pelvic Organs: The uterus appears normal for age. No adnexal masses are seen. Pelvic Nodes: Unremarkable. Miscellaneous: No inguinal hernias are seen. Bones: Unremarkable. IMPRESSION: There is an obstructing 7 mm stone seen within the region of the right ureteropelvic junction, with associated hydronephrosis and perinephric fat stranding. The degree of obstruction is more prominent on the current study than on the 07/28/2021 examination. No nonobstructing kidney stones are seen on either side. No left-sided hydronephrosis is seen. Incidental note is made of: Appendectomy Mild fat containing periumbilical hernia Dictated by: Bo Escoto M.D. on 12/11/2021 at 10:16 Approved by: Bo Escoto M.D. on 12/11/2021 at 10:20
[2021-12-11 11:00] LABS: Bacteria Urine None Seen; Culture Indicated Urine Cult Not Indicated; RBC Urine 30-100/HPF (0-5/HPF); WBC Urine None Seen (0-5/HPF)
[2021-12-11] MEDS: ONDANSETRON 4 MG/2 ML INJ IV (11:17)
[2021-12-11] MEDS: SODIUM CHLORIDE 0.9% 1,000 ML 1000 ML IV (11:18)
[2021-12-11] MEDS: KETOROLAC 30 MG/ML VIAL 15 MG IV (11:18)
[2021-12-11 11:35] LABS: Add Manual Diff / Slide Review NO; Basophils Absolute Auto 0 /uL (0-100); Basophils Percent Auto 0.4 % (0-2); Eosinophils Absolute Auto 0 /uL (0-450); Eosinophils Percent Auto 0.3 % (2-4); Hematocrit 37.5 % (36-46); Hemoglobin 12.4 g/dL (12.0-16.0); Lymphocytes Absolute Auto 800 /uL (1100-4500); Lymphocytes Percent Auto 8.7 % (25-40); Mean Corpuscular HGB Conc 33.2 % (30-36); Mean Corpuscular Hemoglobin 27.5 PG (26-34); Mean Corpuscular Volume 82.9 fL (80-100); Monocytes Absolute Auto 400 /uL (0-900); Monocytes Percent Auto 4.5 % (3-14); Neutrophils Absolute Auto 8300 /uL (1500-7000); Neutrophils Percent Auto 86.1 % (50-75); Platelet Count 264 X10^3/uL (150-400); Red Blood Cell Count 4.52 X10^6/uL (4.0-5.2); Red Cell Distribution Width 13.9 % (11.6-14.8); White Blood Cell Count 9.7 X10^3/uL (4.5-11.0)
[2021-12-11 11:48] LABS: Alanine Aminotransferase 33 IU/L (<35); Albumin 4.3 g/dL (3.5-5.0); Albumin Globulin Ratio 1.3 (1.0-2.8); Alkaline Phosphatase 90 U/L (38-126); Aspartate Aminotransferase 28 IU/L (14-36); BUN Creatinine Ratio 15.7 (6-22); Bilirubin Total 0.7 mg/dL (0.2-1.3); Blood Urea Nitrogen 18 mg/dL (7-17); Calcium 8.8 mg/dL (8.4-10.2); Carbon Dioxide 27 mmol/L (22-32); Chloride 104 mmol/L (98-107); Estimated Glomerular Filt Rate 53.7 mL/min (>60); Globulin 3.2 g/dL (1.7-4.1); Glucose 109 mg/dL (70-100); HEMOLYSIS < 15 (0-50); Lipase 37 U/L (23-300); Potassium 4.5 mmol/L (3.4-5.1); Sodium 136 mmol/L (137-145); Total Protein 7.5 g/dL (6.3-8.2)
== END 2021-12-11 12:55 | disposition home or self-care (01) ==
PROVIDERS: Emergency Provider Emergency Medicine
DX: N13.2 Hydronephrosis with renal and ureteral calculous obstruction (principal)
CPT/HCPCS: 36415; 74176; 80053; 81003; 81015; 81025; 83690; 85025; 96361; 96374; 96375; 99284; J1885; J2405

== ENCOUNTER 2021-12-28 07:58 | Emergency (ER) | payer OTHER, SELFPAY ==
[2021-12-28 08:10] VITALS: BP 183/101; PULSE 97; RESP 18; TEMP 36.9; O2SAT 97; BMI 48.2
--- NOTE | 2021-12-28 08:16 | ED.ABDPAIN ---
HPI - Abdominal Pain General Chief Complaint: Abdominal Pain Stated Complaint: massive kidney stone/pain right side back Time Seen by Provider: 12/28/21 08:16 Source: patient Mode of arrival: Ambulatory Limitations: no limitations History of Present Illness HPI narrative: 36-year-old female comes in with complaint of rapid worsening of right flank pain that has been present since mid November. Patient was diagnosed with a 7 mm kidney stone by CT here on 12/11/21. Patient states she has been able to control her pain with ibuprofen although still quite uncomfortable but last night slightly at about 2:00 a.m. she had sudden worsening of pain, vomiting which has persisted. She has been afebrile but felt chilled. States the pain is majority in her right flank which is the same side but some on the right anterior. Patient states it is the same location. She denies any changes with bowel movements, no dysuria urgency, or frequency. She states she had a lithotripsy with ureteral stent placed and removed and the past at [facility]. This was back in July. Patient denies other medical issues she is on Flomax as well as ibuprofen pain control. 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 No tobacco, alcohol or illicit. Related Data Previous Rx's Medication Instructions Recorded methocarbamol 750 mg tablet 750 mg PO QIDP PRN #40 tab 05/10/17 (Robaxin-750) ondansetron 4 mg disintegrating 4 mg PO Q6H PRN #7 tab 11/14/20 tablet hydrocodone 5 mg-acetaminophen 325 1 tab PO Q6H PRN #6 tab 01/26/21 mg tablet diazepam 2 mg tablet (Valium) 2 mg PO BID-TID PRN #10 tab 06/29/21 hydrocodone 5 mg-acetaminophen 325 1 tab PO Q4-6H PRN #10 tab 06/29/21 mg tablet ketorolac 10 mg tablet 10 mg PO Q6H PRN #14 tab 06/29/21 hydrocodone 5 mg-acetaminophen 325 1 tab PO Q4H PRN #20 tab 07/28/21 mg tablet tamsulosin 0.4 mg capsule (Flomax) 0.4 mg PO DAILY #14 cap 07/28/21 ketorolac 10 mg tablet 10 mg PO Q6H PRN #20 tab 12/11/21 oxycodone 5 mg tablet 5 mg PO Q4-6H PRN #10 tab 12/11/21 tamsulosin 0.4 mg capsule (Flomax) 0.4 mg PO DAILY #30 cap 12/11/21 tramadol 50 mg tablet 50 mg PO Q6H PRN #20 tab 12/11/21 hydrocodone 5 mg-acetaminophen 325 1 tab PO Q6H PRN #10 tab 12/28/21 mg tablet ketorolac 10 mg tablet 10 mg PO Q6H PRN 3 Days #10 tab 12/28/21 ondansetron 4 mg disintegrating 4 mg PO Q6H PRN #10 tab 12/28/21 tablet Allergies Allergy/AdvReac Type Severity Reaction Status Date / Time lidocaine Allergy Unknown Verified 12/28/21 08:10 ARTECAINE (PRESERVATIVE) Allergy Unknown Uncoded 12/28/21 08:10 preservative in lidocaine Allergy Unknown Uncoded 12/28/21 08:10 Review of Systems Review of Systems ROS Unobtainable: All systems reviewed & are unremarkable except as noted in HPI and below Patient History Medical History Arm pain, left Lumbar strain Post-operative pain Strain of left knee Surgical History H/O knee surgery History of colon surgery History of right salpingo-oophorectomy Social History Smoking Status: Never smoker Smoking Status: Never smoker alcohol intake frequency: holidays/special occasions only Substance Use Type: does not use Exam Narrative Exam Narrative: GENERAL: Alert and oriented x three, female in [id number] distress. HEENT: Head normocephalic, atraumatic, EOMI, pupils reactive, face symmetric, moist mucous membranes NECK: Supple, full range of motion CARDIOVASCULAR: Regular rate and rhythm without murmurs, rubs or gallops. RESPIRATORY: Breath sounds equal bilaterally, no wheezes rales or rhonchi. ABDOMEN: Soft, nontender. Normoactive bowel sounds all 4 quadrants. No guarding or rebound, rigidity, no mass : Mild right CVA tenderness, no left CVA tenderness. EXTREMITIES: Normal range of motion, no clubbing or edema. Neurovascularly intact NEUROLOGICAL: Cranial nerves II through XII grossly intact. Moving all extremities. Normal gait. SKIN: Warm, dry, no petechiae, no rashes or lesions. Initial Vital Signs Initial Vital Signs: Vital Signs Temperature 98.4 F 12/28/21 08:10 Pulse Rate 97 H 12/28/21 08:10 Respiratory Rate 18 12/28/21 08:10 Blood Pressure 183/101 H 12/28/21 08:10 Pulse Oximetry 97 12/28/21 08:10 Course Orders Ordered: Discontinued Medications Sodium Chloride (Normal Saline 0.9%) 1,000 mls @ 150 mls/hr IV CONT DARIEN Last Infusion: 12/28/21 09:55 Dose: 0 mls/hr Documented by: Admin: 12/28/21 09:03 Dose: 150 mls/hr Documented by: LUIS CARLOS Ketorolac Tromethamine (Ketorolac 30 Mg/Ml Vial) 30 mg IV NOW ONE Stop: 12/28/21 08:18 Last Admin: 12/28/21 09:03 Dose: 30 mg Documented by: LUIS CARLOS Ondansetron HCl (Ondansetron 4 Mg/2 Ml Inj) 4 mg IV NOW ONE Stop: 12/28/21 08:18 Last Admin: 12/28/21 09:03 Dose: 4 mg Documented by: LUIS CARLOS Reevaluation(s) Reevaluation #1: Discussed today's findings with the patient. Creatinine is slightly elevated from December 11 but is improved in comparison to March. Patient's renal ultrasound shows possible mild hydro on the although they state that it appears normal today. Discussed with patient about CT her at this time she defers and I think appropriate. Her urine does not show any signs of infection. Plan for her to follow-up with urology locally. Patient was given pain medication, antinausea medication and she continues to have plenty of Flomax at home with return precautions discussed. Patient feels comfortable with this plan. Time: 09:35 Consultations Consultation #1: Dr. Marr, urology. Discussed patient is here with persistent 7 mm kidney stone. Plan is see patient in the office unless we cannot pain control or having other new concerning changes in the interim. Vital Signs Vital signs: Vital Signs - 8 hr 12/28/21 08:10 Temperature 98.4 F Pulse Rate 97 H Respiratory Rate 18 Blood Pressure 183/101 H Pulse Oximetry 97 MDM - Abdominal Pain Lab Data Result diagrams: 12/28/21 08:20 12/28/21 08:20 Labs: Lab Results 12/28/21 12/28/21 12/28/21 Range/Units 08:20 08:20 08:20 WBC 9.5 (4.5-11.0) X10^3/uL RBC 4.44 (4.0-5.2) X10^6/uL Hgb 12.0 (12.0-16.0) g/dL Hct 36.0 (36-46) % MCV 81.2 (80-100) fL MCH 27.1 (26-34) PG MCHC 33.4 (30-36) % RDW 13.2 (11.6-14.8) % Plt Count 298 (150-400) X10^3/uL Neut % (Auto) 75.5 H (50-75) % Lymph % (Auto) 16.4 L (25-40) % [place] % (Auto) 5.7 (3-14) % Eos % (Auto) 1.9 L (2-4) % Baso % (Auto) 0.5 (0-2) % Neut # (Auto) 7200 H (3988-4041) /uL Lymph # (Auto) 1600 (8941-8863) /uL [place] # (Auto) 500 (0-900) /uL Eos # (Auto) 200 (0-450) /uL Baso # (Auto) 0 (0-100) /uL Sodium 138 (137-145) mmol/L Potassium 4.4 (3.4-5.1) mmol/L Chloride 104 (98-107) mmol/L Carbon Dioxide 28 (22-32) mmol/L BUN 23 H (7-17) mg/dL Creatinine 1.29 H (0.52-1.04) mg/dL Estimated GFR 47.0 L (>60) mL/min BUN/Creatinine Ratio 17.8 (6-22) Glucose 99 (70-100) mg/dL Calcium 8.6 (8.4-10.2) mg/dL Total Bilirubin 0.5 (0.2-1.3) mg/dL AST 23 (14-36) IU/L ALT 27 (<35) IU/L Alkaline Phosphatase 99 (38-126) U/L Total Protein 7.3 (6.3-8.2) g/dL Albumin 4.0 (3.5-5.0) g/dL Globulin 3.3 (1.7-4.1) g/dL Albumin/Globulin Ratio 1.2 (1.0-2.8) Lipase 61 (23-300) U/L Serum , Qual Negative (Negative) Point of care testing: Urine Dip Bedside Urine Glucose Negative Bedside Urine Bilirubin - Negative Bedside Urine Ketone - Negative Urine Specific [place] 1.015 Bedside Urine Occult Blood +/- Bedside Urine pH 6.5 Bedside Urine Protein - Negative Bedside Urine Urobilinogen 0.2 Bedside Urine Nitrite - Negative Bedside Urine Leukocytes - Negative Esterase Imaging Data renal US: Radiologist's Impression: Launch?[address] [address] Ultrasound Report Signed Patient: Carina Vazquez MR#: [id number] : 1985 Acct:[id number] Age/Sex: 36 / F Date of Service: 12/28/21 Loc: ED Accession Number: [id number] ?? Procedure: US renal complete Ordering Provider: Jayde Martin D.O. PROCEDURE:? US RENAL COMPLETE ? INDICATIONS:? RIGHT FLANK PAIN, KNOWN KIDNEY STONE ? TECHNIQUE:? Real-time scanning was performed of the kidneys and bladder, with image documentation.? ? COMPARISON:? None. ? FINDINGS:? The examination is compromised by soft tissue attenuation.? ? Kidneys:? Kidneys are normal in size.? Right kidney measures 12.6 cm long; left kidney measures 12.6 cm long.? Right renal cortical thickness is 2.1 cm; left renal cortical thickness is 2.2 cm.? Renal cortical echotexture is normal.? No hydronephrosis or nephrolithiasis.? No suspicious solid mass lesions.? ? Bladder:? The urinary bladder is decompressed.? No ureteral jets are noted with color Doppler interrogation.? (Of note, ureteral jets may not be detectable in up to 25% of cases due to insufficient differences in specific gravity between ureteral and bladder urine).? ? Miscellaneous:? No free pelvic fluid.? ? IMPRESSION:? No significant abnormality. ? ? Dictated by: Michael Gutierrez M.D. on 12/28/2021 at 9:21 ? ? Approved by: Michael Gutierrez M.D. on 12/28/2021 at 9:22?? [facility] Narrative Medical decision making narrative: 36-year-old female with right flank pain that has been persistent and suddenly worsened overnight since the 11 of December. Patient has a known 7 mm kidney stone. On renal ultrasound no significant new changes. Her abdominal exam is reassuring. Creatinine is slightly elevated from the but improved from priors when she was as high as 1.6. Her urine does not show signs of infection. No electrolyte abnormalities or other changes. Discussed obtaining CT for more imaging but patient has had priors in the past and she defers. She would like to follow with local Urology and discussed with them and plan is for her to follow up outpatient this week likely for cystoscopy, ureteral stent and/or lithotripsy Discharge Plan Departure Patient Disposition: Home Clinical Impression: Calculus of right kidney Instructions: DI for Kidney Stones Activity Restrictions/Additional Instructions: Follow-up with urology. Call today to set up an appointment this week. Referral is included below. Your renal function is not normal but is better than it was in March but slightly elevated from Dec 11. Continue Flomax daily. You may take ketorolac 1 tablet every 6 hours as needed for pain. Do not take this for more than 5 days in a row. You can take [place] 1-2 tablets every 6 hours as needed for pain in addition to ketorolac. You may also take Zofran 1 tablet every 6 hours as needed for nausea. Your prescription were sent to [facility] in [place]. Please return for worsening symptoms, fevers, persistent vomiting, if you are unable to urine or have a decrease in your urine output, black or bloody stools, passing out or other new or concerning symptoms. Prescriptions: New hydrocodone-acetaminophen 5-325 mg tablet 1 tab PO Q6H PRN (Reason: pain) Qty: 10 0RF ketorolac 10 mg tablet 10 mg PO Q6H PRN (Reason: pain) 3 Days Qty: 10 0RF ondansetron 4 mg tablet,disintegrating 4 mg PO Q6H PRN (Reason: nausea and vomiting) Qty: 10 0RF No Action methocarbamol [Robaxin-750] 750 MG tablet 750 mg PO QIDP PRNQty: 40 0RF ondansetron 4 mg tablet,disintegrating 4 mg PO Q6H PRN (Reason: nausea and vomiting) Qty: 7 0RF hydrocodone-acetaminophen 5-325 mg tablet 1 tab PO Q6H PRN (Reason: pain) Qty: 6 0RF hydrocodone-acetaminophen 5-325 mg tablet 1 tab PO Q4-6H PRN (Reason: pain) Qty: 10 0RF ketorolac 10 mg tablet 10 mg PO Q6H PRN (Reason: pain) Qty: 14 0RF diazepam [Valium] 2 mg tablet 2 mg PO BID-TID PRN (Reason: muscle spasm) Qty: 10 0RF tramadol 50 mg tablet 50 mg PO Q6H PRN (Reason: pain) Qty: 20 0RF tamsulosin [Flomax] 0.4 mg capsule 0.4 mg PO DAILY Qty: 30 0RF ketorolac 10 mg tablet 10 mg PO Q6H PRN (Reason: pain) Qty: 20 0RF oxycodone 5 mg tablet 5 mg PO Q4-6H PRN (Reason: pain) Qty: 10 0RF hydrocodone-acetaminophen 5-325 mg tablet 1 tab PO Q4H PRN (Reason: pain) Qty: 20 0RF tamsulosin [Flomax] 0.4 mg capsule 0.4 mg PO DAILY Qty: 14 0RF Referrals: Pk Zarco MD [Primary Care Provider] - Ranulfo Marr MD [Physician] - Stand Alone Forms: Work Release Note
[2021-12-28 08:39] LABS: Add Manual Diff / Slide Review NO; Basophils Absolute Auto 0 /uL (0-100); Basophils Percent Auto 0.5 % (0-2); Eosinophils Absolute Auto 200 /uL (0-450); Eosinophils Percent Auto 1.9 % (2-4); Lymphocytes Absolute Auto 1600 /uL (1100-4500); Lymphocytes Percent Auto 16.4 % (25-40); Mean Corpuscular HGB Conc 33.4 % (30-36); Mean Corpuscular Hemoglobin 27.1 PG (26-34); Mean Corpuscular Volume 81.2 fL (80-100); Monocytes Absolute Auto 500 /uL (0-900); Monocytes Percent Auto 5.7 % (3-14); Neutrophils Absolute Auto 7200 /uL (1500-7000); Neutrophils Percent Auto 75.5 % (50-75); Platelet Count 298 X10^3/uL (150-400); Red Blood Cell Count 4.44 X10^6/uL (4.0-5.2); Red Cell Distribution Width 13.2 % (11.6-14.8); White Blood Cell Count 9.5 X10^3/uL (4.5-11.0)
--- NOTE | 2021-12-28 08:41 | DI.US.S_ITS ---
PROCEDURE: US RENAL COMPLETE INDICATIONS: RIGHT FLANK PAIN, KNOWN KIDNEY STONE TECHNIQUE: Real-time scanning was performed of the kidneys and bladder, with image documentation. COMPARISON: None. FINDINGS: The examination is compromised by soft tissue attenuation. Kidneys: Kidneys are normal in size. Right kidney measures 12.6 cm long; left kidney measures 12.6 cm long. Right renal cortical thickness is 2.1 cm; left renal cortical thickness is 2.2 cm. Renal cortical echotexture is normal. No hydronephrosis or nephrolithiasis. No suspicious solid mass lesions. Bladder: The urinary bladder is decompressed. No ureteral jets are noted with color Doppler interrogation. (Of note, ureteral jets may not be detectable in up to 25% of cases due to insufficient differences in specific gravity between ureteral and bladder urine). Miscellaneous: No free pelvic fluid. IMPRESSION: No significant abnormality. Dictated by: Michael Gutierrez M.D. on 12/28/2021 at 9:21 Approved by: Michael Gutierrez M.D. on 12/28/2021 at 9:22
[2021-12-28 08:49] LABS: Alanine Aminotransferase 27 IU/L (<35); Albumin Globulin Ratio 1.2 (1.0-2.8); Alkaline Phosphatase 99 U/L (38-126); Aspartate Aminotransferase 23 IU/L (14-36); BUN Creatinine Ratio 17.8 (6-22); Bilirubin Total 0.5 mg/dL (0.2-1.3); Blood Urea Nitrogen 23 mg/dL (7-17); Calcium 8.6 mg/dL (8.4-10.2); Carbon Dioxide 28 mmol/L (22-32); Chloride 104 mmol/L (98-107); Globulin 3.3 g/dL (1.7-4.1); Glucose 99 mg/dL (70-100); HEMOLYSIS < 15 (0-50); Lipase 61 U/L (23-300); Potassium 4.4 mmol/L (3.4-5.1); Sodium 138 mmol/L (137-145); Total Protein 7.3 g/dL (6.3-8.2)
[2021-12-28] MEDS: ONDANSETRON 4 MG/2 ML INJ IV (09:03)
[2021-12-28] MEDS: SODIUM CHLORIDE 0.9% 1,000 ML 150 ML IV (09:03)
[2021-12-28] MEDS: KETOROLAC 30 MG/ML VIAL IV (09:03)
[2021-12-28 09:17] LABS: Pregnancy Test Serum,Qual Negative (Negative)
[2021-12-28 09:56] VITALS: BP 150/87; PULSE 76; O2SAT 99
== END 2021-12-28 09:56 | disposition home or self-care (01) ==
PROVIDERS: Emergency Provider Emergency Medicine; PCP Pediatrics
DX: N20.0 Calculus of kidney (principal)
CPT/HCPCS: 36415; 76770; 80053; 81003; 83690; 84703; 85025; 96361; 96374; 96375; 99284; J1885; J2405

== ENCOUNTER 2022-06-30 09:37 | Emergency (ER) | payer OTHER, SELFPAY ==
[2022-06-30] VITALS (9 sets, daily range): BP systolic 167–175; BP diastolic 84–90; PULSE 80–92; RESP 15–25; TEMP 36.7; O2SAT 96–98; BMI 49.9
--- NOTE | 2022-06-30 10:16 | DI.RAD.S_ITS ---
PROCEDURE: XR CHEST 2V INDICATIONS: fall of horse, hit fence TECHNIQUE: 2 views of the chest were acquired. COMPARISON: [facility], CR, XR CHEST 2V, 04/08/2021, 20:30. FINDINGS: Surgical changes and devices: None. Lungs and pleura: Lungs are clear. No pleural effusions or pneumothorax. Mediastinum: Mediastinal contours are normal. Heart size is normal. Bones and chest wall: No suspicious bony abnormalities. Plain screw fixation of the left humerus is partially visualized. Soft tissues appear unremarkable. IMPRESSION: No displaced rib fracture or pneumothorax identified. Dictated by: Ranulfo Trejo M.D. on 06/30/2022 at 10:11 Approved by: Ranulfo Trejo M.D. on 06/30/2022 at 10:12
--- NOTE | 2022-06-30 10:16 | DI.RAD.S_ITS ---
PROCEDURE: XR HIP W PEL IF DONE RT 2V INDICATIONS: fall of horse, hit fence TECHNIQUE: 2 views of the hip were acquired. COMPARISON: None. FINDINGS: Bones: No fractures or dislocations. No suspicious bony lesions. The visualized pelvic ring appears intact. Soft tissues: No suspicious soft tissue calcifications or masses. IMPRESSION: No acute osseous abnormality. Dictated by: Ranulfo Trejo M.D. on 06/30/2022 at 10:13 Approved by: Ranulfo Trejo M.D. on 06/30/2022 at 10:13
--- NOTE | 2022-06-30 10:16 | DI.RAD.S_ITS ---
PROCEDURE: XR SHOULDER RT MIN 2V INDICATIONS: fall of horse, hit fence TECHNIQUE: 3 views of the shoulder were acquired. COMPARISON: [facility], [place], XR CHEST 2V, 06/30/2022, 10:24. [facility], [place], SHOULDER MINIMUM 2 VIEW LEFT, 03/31/2016, 0:34. FINDINGS: Bones: Right posterior 4th and 5th minimally displaced rib fracture, not previously identified on comparison chest radiograph. The glenohumeral joint is congruent. No suspicious bony lesions. Visualized ribs appear intact. Soft tissues: No suspicious soft tissue calcifications. IMPRESSION: 1. Nondisplaced right 4th and 5th rib fractures. 2. The glenohumeral joint is congruent. Dictated by: Ranulfo Trejo M.D. on 06/30/2022 at 10:14 Approved by: Ranulfo Trejo M.D. on 06/30/2022 at 10:17
--- NOTE | 2022-06-30 10:17 | DI.CT.S_ITS ---
PROCEDURE: CT HEAD/BRAIN WO CON INDICATIONS: fall off horse, hit fence TECHNIQUE: Noncontrast 4.5 mm thick angled axial sections acquired from the foramen magnum to the vertex, with coronal and sagittal reformats. For radiation dose reduction, the following was used: automated exposure control, adjustment of mA and/or kV according to patient size. COMPARISON: [facility], CT, CT HEAD/BRAIN WO CON, 11/14/2020, 14:36. FINDINGS: Image quality: Excellent. CSF spaces: Basal cisterns are patent. No extra-axial fluid collections. Ventricles are normal in size and shape. Brain: No midline shift. No intracranial masses or hemorrhage. Delgadillo-white matter interface is normal. Skull and face: Calvarium and visualized facial bones are intact, without suspicious lesions. Sinuses: Visualized sinuses and mastoids are clear. IMPRESSION: No intracranial hemorrhage or fracture identified. Dictated by: Ranulfo Trejo M.D. on 06/30/2022 at 10:09 Approved by: Ranulfo Trejo M.D. on 06/30/2022 at 10:11
[2022-06-30 11:02] LABS: Add Manual Diff / Slide Review NO; Basophils Absolute Auto 100 /uL (0-100); Basophils Percent Auto 0.8 % (0-2); Eosinophils Absolute Auto 100 /uL (0-450); Eosinophils Percent Auto 1.3 % (2-4); Hematocrit 37.9 % (36-46); Hemoglobin 12.6 g/dL (12.0-16.0); Lymphocytes Absolute Auto 1900 /uL (1100-4500); Mean Corpuscular HGB Conc 33.4 % (30-36); Mean Corpuscular Hemoglobin 26.8 PG (26-34); Mean Corpuscular Volume 80.5 fL (80-100); Monocytes Absolute Auto 700 /uL (0-900); Monocytes Percent Auto 8.1 % (3-14); Neutrophils Absolute Auto 5900 /uL (1500-7000); Neutrophils Percent Auto 67.8 % (50-75); Platelet Count 276 X10^3/uL (150-400); Red Blood Cell Count 4.71 X10^6/uL (4.0-5.2); Red Cell Distribution Width 14.9 % (11.6-14.8); White Blood Cell Count 8.6 X10^3/uL (4.5-11.0)
[2022-06-30] MEDS: MORPHINE 4 MG/ML INJ IV (11:15)
[2022-06-30 11:25] LABS: Alanine Aminotransferase 22 IU/L (<35); Albumin 3.8 g/dL (3.5-5.0); Albumin Globulin Ratio 1.1 (1.0-2.8); Alkaline Phosphatase 83 U/L (38-126); Aspartate Aminotransferase 20 IU/L (14-36); Bilirubin Total 0.5 mg/dL (0.2-1.3); Blood Urea Nitrogen 17 mg/dL (7-17); Calcium 8.2 mg/dL (8.4-10.2); Carbon Dioxide 26 mmol/L (22-32); Chloride 103 mmol/L (98-107); Estimated Glomerular Filt Rate > 60 mL/min (>60); Globulin 3.6 g/dL (1.7-4.1); Glucose 96 mg/dL (70-100); HEMOLYSIS < 15 (0-50); Lipase 42 U/L (23-300); Potassium 4.1 mmol/L (3.4-5.1); Sodium 134 mmol/L (137-145); Total Protein 7.4 g/dL (6.3-8.2)
--- NOTE | 2022-06-30 11:58 | ED_ITS ---
HPI - Fall <Yony Guardado PA-C - Last Filed: 07/13/22 12:05> General Chief Complaint: Fall Stated Complaint: thrown by horse into fence head, hips,shoulder Time Seen by Provider: 06/30/22 10:16 Source: patient and family Mode of arrival: Ambulatory History of Present Illness HPI Narrative: Patient is a 37-year-old female represents to the emergency room today with complaint of right-sided shoulder chest and hip pain status post being thrown from a horse yesterday. States she was straining her horse and the horse threw her into a fence she went headfirst into this as well she was helmeted and then fell on to her the ground on her right side where she then rolled. Main complaint now is pain right side in the chest shoulder area when she takes deep breaths. Denies any other associated shortness of breath or chest pain. Denies any fluttering of the heart or any increased chest pain with exertion. Denies loss of consciousness during the accident and denies any double vision or any other neurological related concerns from then until now. Has taken hydrocodone acetaminophen in the past for pain it think that should work fine for her in regards to her pain now. Describes pain as being about a 6 on a scale of 10 at this point. Only allergies are to lidocaine and artecaine. Related Data Previous Rx's Medication Instructions Recorded methocarbamol 750 mg tablet 750 mg PO QIDP PRN #40 tabs 05/10/17 (Robaxin-750) ondansetron 4 mg disintegrating 4 mg PO Q6H PRN nausea and 11/14/20 tablet vomiting #7 tabs hydrocodone 5 mg-acetaminophen 325 1 tab PO Q6H PRN pain #6 tabs 01/26/21 mg tablet diazepam 2 mg tablet (Valium) 2 mg PO BID-TID PRN muscle spasm 06/29/21 #10 tabs hydrocodone 5 mg-acetaminophen 325 1 tab PO Q4-6H PRN pain #10 tabs 06/29/21 mg tablet ketorolac 10 mg tablet 10 mg PO Q6H PRN pain #14 tabs 06/29/21 hydrocodone 5 mg-acetaminophen 325 1 tab PO Q4H PRN pain #20 tabs 07/28/21 mg tablet tamsulosin 0.4 mg capsule (Flomax) 0.4 mg PO DAILY #14 caps 07/28/21 ketorolac 10 mg tablet 10 mg PO Q6H PRN pain #20 tabs 12/11/21 oxycodone 5 mg tablet 5 mg PO Q4-6H PRN pain #10 tabs 12/11/21 tamsulosin 0.4 mg capsule (Flomax) 0.4 mg PO DAILY #30 caps 12/11/21 tramadol 50 mg tablet 50 mg PO Q6H PRN pain #20 tabs 12/11/21 hydrocodone 5 mg-acetaminophen 325 1 tab PO Q6H PRN pain #10 tabs 12/28/21 mg tablet ondansetron 4 mg disintegrating 4 mg PO Q6H PRN nausea and 12/28/21 tablet vomiting #10 tabs hydrocodone 5 mg-acetaminophen 325 1 tab PO Q8H PRN pain #10 tabs 06/30/22 mg tablet Allergies Allergy/AdvReac Type Severity Reaction Status Date / Time lidocaine Allergy Unknown Verified 12/28/21 08:10 ARTECAINE (PRESERVATIVE) Allergy Unknown Uncoded 12/28/21 08:10 preservative in lidocaine Allergy Unknown Uncoded 12/28/21 08:10 Review of Systems <Yony Guardado PA-C - Last Filed: 07/13/22 12:05> Review of Systems Narrative: R.O.S.: General: No fever, chills or fatigue. Cardiovascular: No chest pain or palpitations Respiratory: No S.O.B. HEENT: No congestion, ear pain, rhinorrhea, sore throat or tinnitus Gastrointestinal: No nausea or vomiting Skin: No rash or associated abnormalities Musculoskeletal: Right shoulder, right rib and right hip pain? Neurological: Awake, alert and in not apparent distress. No Headaches, changes in vision or other related neurological concerns. Patient History <Yony Guardado PA-C - Last Filed: 07/13/22 12:05> Medical History Arm pain, left Lumbar strain Post-operative pain Strain of left knee Surgical History H/O knee surgery History of colon surgery History of right salpingo-oophorectomy Social History Smoking Status: Never smoker Smoking Status: Never smoker alcohol intake frequency: holidays/special occasions only Substance Use Type: does not use Exam <Yony Guardado PA-C - Last Filed: 07/13/22 12:05> Narrative Exam Narrative: Physical Exam: ? General: normal appearance, well developed, well nourished, alert, and awake. Not in acute distress. ? Head: Normocephalic, no lesions. Chest: Lungs CTAB, no rales, rhonchi or wheezes. ?? Heart: RRR, no murmurs, rubs or gallops. Eyes: PERRLA, EOM's full, conjunctivae clear. ? Neuro: Physiological, no localizing findings, CN3-12 intact. ?? Extremities: Warm, well perfused, FROM, no deformities, no edema. ?? Skin: Normal, no rashes, no lesions noted. ?? PSYCHIATRIC: The mood is good, no blunted affect. Speech is clear. Thought process is linear, thought content is appropriate. The voice is without significant inflection. Gastrointestinal: Soft; NT; ND; Pos BS with Neg. rebound tenderness. No scars or major deformities noted on Visual Inspection. Musculoskeletal: Patient has pain to palpation of the right posterior shoulder. The right posterior shoulder has no obvious swelling or erythema this time. Patient also has pain to palpation the right chest in the superior chest area. The chest also has no obvious erythema swelling noted visual inspection. Initial Vital Signs Initial Vital Signs: Vital Signs Pulse Rate 91 H 06/30/22 10:13 Respiratory Rate 23 06/30/22 10:13 Blood Pressure 175/90 H 06/30/22 10:13 Pulse Oximetry 97 06/30/22 10:13 <Jayde Martin DO - Last Filed: 07/21/22 05:48> Initial Vital Signs Initial Vital Signs: Vital Signs Pulse Rate 91 H 06/30/22 10:13 Respiratory Rate 23 06/30/22 10:13 Blood Pressure 175/90 H 06/30/22 10:13 Pulse Oximetry 97 06/30/22 10:13 Course <Yony Guardado PA-C - Last Filed: 07/13/22 12:05> Orders Ordered: Discontinued Medications Ketorolac Tromethamine (Ketorolac 30 Mg/Ml Vial) 30 mg IV NOW ONE Stop: 06/30/22 11:57 Last Admin: 06/30/22 12:02 Dose: 30 mg Documented By: CLEMENT Morphine Sulfate (Morphine 4 Mg/Ml Inj) 4 mg IV NOW ONE Stop: 06/30/22 11:01 Last Admin: 06/30/22 11:15 Dose: 4 mg Documented By: CLEMENT Vital Signs Vital signs: Vital Signs - 8 hr 06/30/22 10:14 06/30/22 10:13 06/30/22 10:13 Temperature 98.0 F Pulse Rate 80 91 H Respiratory Rate 18 23 Blood Pressure 167/90 H 175/90 H Pulse Oximetry 98 97 Oxygen Delivery Method Room Air 06/30/22 10:15 06/30/22 10:15 06/30/22 10:47 Temperature Pulse Rate 90 92 H Respiratory Rate 15 Blood Pressure 167/90 H Pulse Oximetry 97 98 Oxygen Delivery Method 06/30/22 11:00 Temperature Pulse Rate 90 Respiratory Rate 20 Blood Pressure Pulse Oximetry 97 Oxygen Delivery Method <Jayde Martin DO - Last Filed: 07/21/22 05:48> Orders Ordered: Discontinued Medications Ketorolac Tromethamine (Ketorolac 30 Mg/Ml Vial) 30 mg IV NOW ONE Stop: 06/30/22 11:57 Last Admin: 06/30/22 12:02 Dose: 30 mg Documented By: CLEMENT Morphine Sulfate (Morphine 4 Mg/Ml Inj) 4 mg IV NOW ONE Stop: 06/30/22 11:01 Last Admin: 06/30/22 11:15 Dose: 4 mg Documented By: CLEMENT Vital Signs Vital signs: Vital Signs - 8 hr 06/30/22 10:14 06/30/22 10:13 06/30/22 10:13 Temperature 98.0 F Pulse Rate 80 91 H Respiratory Rate 18 23 Blood Pressure 167/90 H 175/90 H Pulse Oximetry 98 97 Oxygen Delivery Method Room Air 06/30/22 10:15 06/30/22 10:15 06/30/22 10:47 Temperature Pulse Rate 90 92 H Respiratory Rate 15 Blood Pressure 167/90 H Pulse Oximetry 97 98 Oxygen Delivery Method 06/30/22 11:00 Temperature Pulse Rate 90 Respiratory Rate 20 Blood Pressure Pulse Oximetry 97 Oxygen Delivery Method MDM - Fall <Yony Guardado PA-C - Last Filed: 07/13/22 12:05> Lab Data Result diagrams: 06/30/22 10:54 06/30/22 10:54 Labs: Lab Results 06/30/22 06/30/22 Range/Units 10:54 10:54 WBC 8.6 (4.5-11.0) X10^3/uL RBC 4.71 (4.0-5.2) X10^6/uL Hgb 12.6 (12.0-16.0) g/dL Hct 37.9 (36-46) % MCV 80.5 (80-100) fL MCH 26.8 (26-34) PG MCHC 33.4 (30-36) % RDW 14.9 H (11.6-14.8) % Plt Count 276 (150-400) X10^3/uL Neut % (Auto) 67.8 (50-75) % Lymph % (Auto) 22.0 L (25-40) % Lane % (Auto) 8.1 (3-14) % Eos % (Auto) 1.3 L (2-4) % Baso % (Auto) 0.8 (0-2) % Neut # (Auto) 5900 (2791-6100) /uL Lymph # (Auto) 1900 (4564-7713) /uL Lane # (Auto) 700 (0-900) /uL Eos # (Auto) 100 (0-450) /uL Baso # (Auto) 100 (0-100) /uL Sodium 134 L (137-145) mmol/L Potassium 4.1 (3.4-5.1) mmol/L Chloride 103 (98-107) mmol/L Carbon Dioxide 26 (22-32) mmol/L BUN 17 (7-17) mg/dL Creatinine 0.81 (0.52-1.04) mg/dL Estimated GFR > 60 (>60) mL/min BUN/Creatinine Ratio 21.0 (6-22) Glucose 96 (70-100) mg/dL Calcium 8.2 L (8.4-10.2) mg/dL Total Bilirubin 0.5 (0.2-1.3) mg/dL AST 20 (14-36) IU/L ALT 22 (<35) IU/L Alkaline Phosphatase 83 (38-126) U/L Total Protein 7.4 (6.3-8.2) g/dL Albumin 3.8 (3.5-5.0) g/dL Globulin 3.6 (1.7-4.1) g/dL Albumin/Globulin Ratio 1.1 (1.0-2.8) Lipase 42 (23-300) U/L Imaging Data Extremity x-ray #1: Radiologist's Impression: PROCEDURE:? XR SHOULDER RT MIN 2V ? INDICATIONS:? fall of horse, hit fence ? TECHNIQUE:? 3 views of the shoulder were acquired.? ? COMPARISON:? [facility], , XR CHEST 2V, 06/30/2022, 10:24.? [facility], SHOULDER MINIMUM 2 VIEW LEFT, 03/31/2016, 0:34. ? FINDINGS:? ? Bones:? Right posterior 4th and 5th minimally displaced rib fracture, not previously identified on comparison chest radiograph.? The glenohumeral joint is congruent.? No suspicious bony lesions.? Visualized ribs appear intact.? ? Soft tissues:? No suspicious soft tissue calcifications.? ? IMPRESSION: 1. Nondisplaced right 4th and 5th rib fractures. 2. The glenohumeral joint is congruent.? ? ? Dictated by: Ranulfo Trejo M.D. on 06/30/2022 at 10:14 ? ? Approved by: Ranulfo Trejo M.D. on 06/30/2022 at 10:17 ? Chest x-ray: Radiologist's Impression: PROCEDURE:? XR CHEST 2V ? INDICATIONS:? fall of horse, hit fence ? TECHNIQUE:? 2 views of the chest were acquired.? ? COMPARISON:? [facility], , XR CHEST 2V, 04/08/2021, 20:30. ? FINDINGS:? ? Surgical changes and devices:? None.? ? Lungs and pleura:? Lungs are clear.? No pleural effusions or pneumothorax.? ? Mediastinum:? Mediastinal contours are normal.? Heart size is normal.? ? Bones and chest wall:? No suspicious bony abnormalities.? Plain screw fixation of the left humerus is partially visualized.? Soft tissues appear unremarkable.? ? IMPRESSION:? No displaced rib fracture or pneumothorax identified. ? ? Dictated by: Ranulfo Trejo M.D. on 06/30/2022 at 10:11 ? ? Approved by: Ranulfo Trejo M.D. on 06/30/2022 at 10:12 ? X ray RT Hip: Radiologist's Impression: PROCEDURE:? XR HIP W PEL IF DONE RT 2V ? INDICATIONS:? fall of horse, hit fence ? TECHNIQUE:? 2 views of the hip were acquired.? ? COMPARISON:? None. ? FINDINGS:? ? Bones:? No fractures or dislocations.? No suspicious bony lesions.? The visualized pelvic ring appears intact.? ? Soft tissues:? No suspicious soft tissue calcifications or masses.? ? IMPRESSION:? No acute osseous abnormality. ? ? Dictated by: Ranulfo Trejo M.D. on 06/30/2022 at 10:13 ? ? Approved by: Ranulfo Trejo M.D. on 06/30/2022 at 10:13 ? CT scan - head: Radiologist's Impression: PROCEDURE:? CT HEAD/BRAIN WO CON ? INDICATIONS:? fall off horse, hit fence ? TECHNIQUE:? Noncontrast 4.5 mm thick angled axial sections acquired from the foramen magnum to the vertex, with coronal and sagittal reformats.? For radiation dose reduction, the following was used:? automated exposure control, adjustment of mA and/or kV according to patient size.? ? COMPARISON:? [facility], CT, CT HEAD/BRAIN WO CON, 11/14/2020, 14:36. ? FINDINGS:? Image quality:? Excellent.? ? CSF spaces:? Basal cisterns are patent.? No extra-axial fluid collections.? Ventricles are normal in size and shape.? ? Brain:? No midline shift.? No intracranial masses or hemorrhage.? Delgadillo-white matter interface is normal.? ? Skull and face:? Calvarium and visualized facial bones are intact, without suspicious lesions.? ? Sinuses:? Visualized sinuses and mastoids are clear.? ? IMPRESSION:? No intracranial hemorrhage or fracture identified. ? ? Dictated by: Ranulfo Trejo M.D. on 06/30/2022 at 10:09 ? ? Approved by: Ranulfo Trejo M.D. on 06/30/2022 at 10:11 ? MDM Narrative Medical decision making narrative: Patient is a 37-year-old female who presents to the emergency room today with complaint of right-sided shoulder chest and hip pain status post being thrown from a horse yesterday. Chest films were positive and revealed a nondisplaced fractures to the 4th and 5th right ribs. Her CT was negative and right hip films were negative. Patient also has a history of kidney stones and states that hydrocodone has worked for extreme pain in the past. Describes this pain as being over 6 when aggravated. Discussed rib fractures and advised patient to refrain from any strenuous activity for the next 6 weeks. Also issued an incentive spirometer and instructed patient on use. Advised patient to use incentive spirometer as instructed patient. Hydrocodone was ordered for relief of extreme pain and patient advised to use [id number] nonsteroidal anti- inflammatories for routine pain management. Also advised to follow-up with her primary care provider should she have any nonemergent concerns. <Jayde Martin, DO - Last Filed: 07/21/22 05:48> Lab Data Labs: Lab Results 06/30/22 06/30/22 Range/Units 10:54 10:54 WBC 8.6 (4.5-11.0) X10^3/uL RBC 4.71 (4.0-5.2) X10^6/uL Hgb 12.6 (12.0-16.0) g/dL Hct 37.9 (36-46) % MCV 80.5 (80-100) fL MCH 26.8 (26-34) PG MCHC 33.4 (30-36) % RDW 14.9 H (11.6-14.8) % Plt Count 276 (150-400) X10^3/uL Neut % (Auto) 67.8 (50-75) % Lymph % (Auto) 22.0 L (25-40) % Lane % (Auto) 8.1 (3-14) % Eos % (Auto) 1.3 L (2-4) % Baso % (Auto) 0.8 (0-2) % Neut # (Auto) 5900 (4647-0656) /uL Lymph # (Auto) 1900 (2991-0479) /uL Lane # (Auto) 700 (0-900) /uL Eos # (Auto) 100 (0-450) /uL Baso # (Auto) 100 (0-100) /uL Sodium 134 L (137-145) mmol/L Potassium 4.1 (3.4-5.1) mmol/L Chloride 103 (98-107) mmol/L Carbon Dioxide 26 (22-32) mmol/L BUN 17 (7-17) mg/dL Creatinine 0.81 (0.52-1.04) mg/dL Estimated GFR > 60 (>60) mL/min BUN/Creatinine Ratio 21.0 (6-22) Glucose 96 (70-100) mg/dL Calcium 8.2 L (8.4-10.2) mg/dL Total Bilirubin 0.5 (0.2-1.3) mg/dL AST 20 (14-36) IU/L ALT 22 (<35) IU/L Alkaline Phosphatase 83 (38-126) U/L Total Protein 7.4 (6.3-8.2) g/dL Albumin 3.8 (3.5-5.0) g/dL Globulin 3.6 (1.7-4.1) g/dL Albumin/Globulin Ratio 1.1 (1.0-2.8) Lipase 42 (23-300) U/L Discharge Plan Departure Patient Disposition: Home Clinical Impression: Fracture of rib Instructions: DI for Rib Fracture Activity Restrictions/Additional Instructions: *You have been diagnosed with fractures of the right 4th and 5th ribs. You have been issued an incentive spirometer with instructions for use. I suggest to use incentive spirometer as directed to help prevent a collapsing have areas of your lungs. You have also been issued hydrocodone for pain. I suggest she also use [id number] nonsteroidal anti-inflammatories to assist with pain relief. Also suggest to refrain from any strenuous activities that would cause you the need hyper ventilator take deep breaths. I suggested follow-up with your [facility] care provider with any nonemergent concerns. Also please return to the emergency room should any emergent concerns arise. *What to do: *Please continue to take your regular medications as directed. [ ] New medication prescriptions sent to your pharmacy: [ ] [x] New medication written as a paper prescription [ ] No new medications given *Please follow up with your primary care provider in 2-3 days, call for an appointment. Let them know you were seen in the Emergency Department and that we ask that you be seen in follow up. We will electronically transmit a record of today's note if your PCP is in our system *If you do not have a primary care provider please contact the [facility] Resource line at [phone]. They will ask some questions about your medical history and help get you set up with a doctor in the community. *Return to Emergency Department if you should have any new, worsening or concerning symptoms, such as [fever greater than 101 F, shaking chills, worsening pain, persistent vomiting or other bothersome symptoms] Prescriptions: New hydrocodone-acetaminophen 5-325 mg tablet 1 tab PO Q8H PRN (Reason: pain) Qty: 10 0RF No Action methocarbamol [Robaxin-750] 750 MG tablet 750 mg PO QIDP PRNQty: 40 0RF ondansetron 4 mg tablet,disintegrating 4 mg PO Q6H PRN (Reason: nausea and vomiting) Qty: 7 0RF hydrocodone-acetaminophen 5-325 mg tablet 1 tab PO Q6H PRN (Reason: pain) Qty: 6 0RF hydrocodone-acetaminophen 5-325 mg tablet 1 tab PO Q4-6H PRN (Reason: pain) Qty: 10 0RF ketorolac 10 mg tablet 10 mg PO Q6H PRN (Reason: pain) Qty: 14 0RF diazepam [Valium] 2 mg tablet 2 mg PO BID-TID PRN (Reason: muscle spasm) Qty: 10 0RF tramadol 50 mg tablet 50 mg PO Q6H PRN (Reason: pain) Qty: 20 0RF tamsulosin [Flomax] 0.4 mg capsule 0.4 mg PO DAILY Qty: 30 0RF ketorolac 10 mg tablet 10 mg PO Q6H PRN (Reason: pain) Qty: 20 0RF oxycodone 5 mg tablet 5 mg PO Q4-6H PRN (Reason: pain) Qty: 10 0RF hydrocodone-acetaminophen 5-325 mg tablet 1 tab PO Q6H PRN (Reason: pain) Qty: 10 0RF ondansetron 4 mg tablet,disintegrating 4 mg PO Q6H PRN (Reason: nausea and vomiting) Qty: 10 0RF hydrocodone-acetaminophen 5-325 mg tablet 1 tab PO Q4H PRN (Reason: pain) Qty: 20 0RF tamsulosin [Flomax] 0.4 mg capsule 0.4 mg PO DAILY Qty: 14 0RF Referrals: Betancourt,Elo, [employer] [Primary Care Provider] - Visit Report Forms: Patient Portal/API <Jayde Martin DO - Last Filed: 07/21/22 05:48> Cosign ED Attending Cosjanettature Attestation: I was immediately available in the department for consultation. Documentation has been reviewed.
[2022-06-30] MEDS: KETOROLAC 30 MG/ML VIAL IV (12:02)
--- NOTE | 2022-06-30 12:30 | PC.NURSE ---
provided with incentive spirometer and instructed on use. pt demonstrated proper use
== END 2022-06-30 12:54 | disposition home or self-care (01) ==
PROVIDERS: Emergency Medicine; Emergency Provider Physician Assistant; PCP Nurse Practitioner Family
DX: S22.41XA Multiple fractures of ribs, right side, initial encounter for closed fracture (principal); V80.010A Animal-rider injured by fall from or being thrown from horse in noncollision accident, initial encounter
CPT/HCPCS: 70450; 71046; 73030; 73502; 80053; 83690; 85025; 93005; 93010; 96374; 96375; 99283; 99284; J1885; J2270

== ENCOUNTER 2023-03-09 09:46 | Emergency (ER) | payer OTHER, SELFPAY ==
[2023-03-09 09:56] VITALS: PULSE 85; O2SAT 97
[2023-03-09 09:58] VITALS: BP 137/93; BP 144/78; PULSE 81; PULSE 84; RESP 18; TEMP 36.8; O2SAT 96; BMI 50.4
[2023-03-09 10:00] VITALS: BP 144/78; PULSE 88; O2SAT 97
--- NOTE | 2023-03-09 10:10 | ED.GENADULT ---
HPI - General Adult General Chief complaint: Urogenital-Female Stated complaint: lower back pain, throwing up, kidney stones prior Time Seen by Provider: 03/09/23 09:58 Source: patient Mode of arrival: Ambulatory Limitations: no limitations History of Present Illness HPI narrative: 38-year-old female who is here for evaluation of approximately 24 hours of right-sided lower back discomfort. No fevers. She has had kidney stones in the past. Pain is made worse by movement. No urinary symptoms. No change in bowel habits. She states that it does radiate down to her right buttock. Related Data Previous Rx's Medication Instructions Recorded methocarbamol 750 mg tablet 750 mg PO QIDP PRN #40 tabs 05/10/17 (Robaxin-750) ondansetron 4 mg disintegrating 4 mg PO Q6H PRN nausea and 11/14/20 tablet vomiting #7 tabs hydrocodone 5 mg-acetaminophen 325 1 tab PO Q6H PRN pain #6 tabs 01/26/21 mg tablet diazepam 2 mg tablet (Valium) 2 mg PO BID-TID PRN muscle spasm 06/29/21 #10 tabs hydrocodone 5 mg-acetaminophen 325 1 tab PO Q4-6H PRN pain #10 tabs 06/29/21 mg tablet ketorolac 10 mg tablet 10 mg PO Q6H PRN pain #14 tabs 06/29/21 hydrocodone 5 mg-acetaminophen 325 1 tab PO Q4H PRN pain #20 tabs 07/28/21 mg tablet tamsulosin 0.4 mg capsule (Flomax) 0.4 mg PO DAILY #14 caps 07/28/21 ketorolac 10 mg tablet 10 mg PO Q6H PRN pain #20 tabs 12/11/21 oxycodone 5 mg tablet 5 mg PO Q4-6H PRN pain #10 tabs 12/11/21 tamsulosin 0.4 mg capsule (Flomax) 0.4 mg PO DAILY #30 caps 12/11/21 tramadol 50 mg tablet 50 mg PO Q6H PRN pain #20 tabs 12/11/21 hydrocodone 5 mg-acetaminophen 325 1 tab PO Q6H PRN pain #10 tabs 12/28/21 mg tablet ondansetron 4 mg disintegrating 4 mg PO Q6H PRN nausea and 12/28/21 tablet vomiting #10 tabs hydrocodone 5 mg-acetaminophen 325 1 tab PO Q8H PRN pain #10 tabs 06/30/22 mg tablet cyclobenzaprine 10 mg tablet 10 mg PO TID PRN muscle spasm #14 03/09/23 tabs Allergies Allergy/AdvReac Type Severity Reaction Status Date / Time lidocaine Allergy Unknown Verified 12/28/21 08:10 ARTECAINE (PRESERVATIVE) Allergy Unknown Uncoded 12/28/21 08:10 preservative in lidocaine Allergy Unknown Uncoded 12/28/21 08:10 Review of Systems Constitutional Constitutional: Reports system reviewed and no additional complaints, except as documented Cardiovascular Cardiovascular: Reports system reviewed and no additional complaints, except as documented Respiratory Respiratory: Reports system reviewed and no additional complaints, except as documented Gastrointestinal Gastrointestinal: Reports system reviewed and no additional complaints, except as documented Genitourinary Genitourinary: Reports system reviewed and no additional complaints, except as documented Musculoskeletal Musculoskeletal: Reports system reviewed and no additional complaints, except as documented Integumentary/Breasts Skin/Breast: Reports system reviewed and no additional complaints, except as documented Neurologic Neurologic: Reports system reviewed and no additional complaints, except as documented Patient History Medical History Arm pain, left Lumbar strain Post-operative pain Strain of left knee Surgical History H/O knee surgery History of colon surgery History of right salpingo-oophorectomy Social History Smoking Status: Never smoker Smoking Status: Never smoker alcohol intake frequency: holidays/special occasions only Substance Use Type: does not use Exam Initial Vital Signs Initial Vital Signs: Vital Signs Pulse Rate 85 03/09/23 09:56 Pulse Oximetry 97 03/09/23 09:56 HENMT Head: normal to inspection and normocephalic Resp Effort & Inspection: normal respiratory effort Auscultation: clear to auscultation bilaterally Cardio Rate: regular rate GI Inspection: normal to inspection Back/Spine/Pelvis Other: Right-sided paraspinal lower lumbar muscle tenderness to palpation. Skin General: no rashes or lesions noted Neuro General: patient alert, patient awake and moves all extremities Course Orders Ordered: Discontinued Medications Ketorolac Tromethamine (Ketorolac 30 Mg/Ml Vial) 30 mg IM NOW ONE Stop: 03/09/23 10:27 Vital Signs Vital signs: Vital Signs - 8 hr 03/09/23 09:58 03/09/23 09:56 03/09/23 09:58 Temperature 98.2 F Pulse Rate 81 85 Respiratory Rate 18 Blood Pressure 144/78 H 137/93 H Pulse Oximetry 96 97 Oxygen Delivery Method Room Air 03/09/23 09:58 03/09/23 10:00 03/09/23 10:00 Temperature Pulse Rate 84 88 Respiratory Rate Blood Pressure 144/78 H Pulse Oximetry 96 97 Oxygen Delivery Method Medical Decision Making Medical Records Medical records reviewed: Yes I reviewed the patient's medical records. Lab Data Lab results reviewed: Yes I reviewed the patient's lab results. Labs: Point of Care Testing Test Results Negative Urine Dip Bedside Urine Glucose Negative Bedside Urine Bilirubin - Negative Bedside Urine Ketone - Negative Urine Specific [place] 1.025 Bedside Urine Occult Blood - Negative Bedside Urine pH 6.0 Bedside Urine Protein - Negative Bedside Urine Urobilinogen - Negative Bedside Urine Nitrite - Negative Bedside Urine Leukocytes - Negative Esterase Point of care testing: Point of Care Testing Test Results Negative Urine Dip Bedside Urine Glucose Negative Bedside Urine Bilirubin - Negative Bedside Urine Ketone - Negative Urine Specific [place] 1.025 Bedside Urine Occult Blood - Negative Bedside Urine pH 6.0 Bedside Urine Protein - Negative Bedside Urine Urobilinogen - Negative Bedside Urine Nitrite - Negative Bedside Urine Leukocytes - Negative Esterase MDM Narrative Medical decision making narrative: Patient clearly has a right lower back reproducible muscle spasm. I have low suspicion for pyelo. Low suspicion for cauda equina. Low suspicion for appendicitis or stone. No indication for radiologic studies. Will discharge home with symptom treatment. She was given return precautions. She expressed understanding and agreement. Discharge Plan Departure Patient Disposition: Home Clinical Impression: Lower back pain Instructions: Low Back Pain Activity Restrictions/Additional Instructions: I do recommend you try to stay as active as possible. Also recommend heat and ice and massage. You can also do anti-inflammatories on a regular basis. Use the muscle relaxers as needed. Contact your primary doctor for follow-up. Prescriptions: New cyclobenzaprine 10 mg tablet 10 mg PO TID PRN (Reason: muscle spasm) Qty: 14 0RF No Action methocarbamol [Robaxin-750] 750 MG tablet 750 mg PO QIDP PRNQty: 40 0RF ondansetron 4 mg tablet,disintegrating 4 mg PO Q6H PRN (Reason: nausea and vomiting) Qty: 7 0RF hydrocodone-acetaminophen 5-325 mg tablet 1 tab PO Q6H PRN (Reason: pain) Qty: 6 0RF hydrocodone-acetaminophen 5-325 mg tablet 1 tab PO Q4-6H PRN (Reason: pain) Qty: 10 0RF ketorolac 10 mg tablet 10 mg PO Q6H PRN (Reason: pain) Qty: 14 0RF diazepam [Valium] 2 mg tablet 2 mg PO BID-TID PRN (Reason: muscle spasm) Qty: 10 0RF tramadol 50 mg tablet 50 mg PO Q6H PRN (Reason: pain) Qty: 20 0RF tamsulosin [Flomax] 0.4 mg capsule 0.4 mg PO DAILY Qty: 30 0RF ketorolac 10 mg tablet 10 mg PO Q6H PRN (Reason: pain) Qty: 20 0RF oxycodone 5 mg tablet 5 mg PO Q4-6H PRN (Reason: pain) Qty: 10 0RF hydrocodone-acetaminophen 5-325 mg tablet 1 tab PO Q6H PRN (Reason: pain) Qty: 10 0RF ondansetron 4 mg tablet,disintegrating 4 mg PO Q6H PRN (Reason: nausea and vomiting) Qty: 10 0RF hydrocodone-acetaminophen 5-325 mg tablet 1 tab PO Q4H PRN (Reason: pain) Qty: 20 0RF tamsulosin [Flomax] 0.4 mg capsule 0.4 mg PO DAILY Qty: 14 0RF hydrocodone-acetaminophen 5-325 mg tablet 1 tab PO Q8H PRN (Reason: pain) Qty: 10 0RF Referrals: Elo Betancourt ARNP [Primary Care Provider] - Stand Alone Forms: Patient Portal/API
[2023-03-09] MEDS: KETOROLAC 30 MG/ML VIAL IM (10:40)
[2023-03-09 10:47] VITALS: BP 120/76; PULSE 77; RESP 18; O2SAT 96
== END 2023-03-09 10:48 | disposition home or self-care (01) ==
PROVIDERS: Emergency Provider Emergency Medicine; PCP Nurse Practitioner Family
DX: M54.50 Low back pain, unspecified (principal)
CPT/HCPCS: 81003; 81025; 96372; 99283; J1885

== ENCOUNTER 2023-03-31 07:39 | Emergency (ER) | payer OTHER, SELFPAY ==
[2023-03-31 07:41] VITALS: BP 148/96; PULSE 79; RESP 16; TEMP 36.4; O2SAT 99; BMI 50.1
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
[2023-03-31] MEDS: predniSONE 20 MG TABLET 60 MG PO (08:19)
[2023-03-31] MEDS: KETOROLAC 30 MG/ML VIAL IM (08:21)
[2023-03-31 09:26] VITALS: BP 165/102; PULSE 70; RESP 16; O2SAT 99
== END 2023-03-31 09:26 | disposition home or self-care (01) ==
PROVIDERS: Emergency Provider Emergency Medicine; PCP Nurse Practitioner Family
DX: M54.31 Sciatica, right side (principal)
CPT/HCPCS: 72100; 96372; 99283; 99284; J1885

== ENCOUNTER 2024-07-19 15:04 | Emergency (ER) | payer OTHER, SELFPAY ==
[2024-07-19 15:09] VITALS: BP 188/88; PULSE 90; RESP 18; TEMP 36.8; O2SAT 97; BMI 45.7
[2024-07-19 16:06] LABS: Add Manual Diff / Slide Review NO; Basophils Absolute Auto 100 /uL (0-100); Basophils Percent Auto 0.8 % (0-2); Eosinophils Absolute Auto 100 /uL (0-450); Eosinophils Percent Auto 1.2 % (2-4); Hematocrit 38.9 % (36-46); Hemoglobin 13.1 g/dL (12.0-16.0); Lymphocytes Absolute Auto 2500 /uL (1100-4500); Lymphocytes Percent Auto 21.5 % (25-40); Mean Corpuscular HGB Conc 33.6 % (30-36); Mean Corpuscular Hemoglobin 27.2 PG (26-34); Mean Corpuscular Volume 80.8 fL (80-100); Monocytes Absolute Auto 800 /uL (0-900); Neutrophils Absolute Auto 8000 /uL (1500-7000); Neutrophils Percent Auto 69.5 % (50-75); Platelet Count 310 X10^3/uL (150-400); Red Blood Cell Count 4.82 X10^6/uL (4.0-5.2); Red Cell Distribution Width 14.4 % (11.6-14.8); White Blood Cell Count 11.6 X10^3/uL (4.5-11.0)
[2024-07-19] MEDS: KETOROLAC 30 MG/ML VIAL 15 MG IV (16:15)
[2024-07-19] MEDS: ONDANSETRON 4 MG/2 ML INJ IV (16:15)
[2024-07-19 16:17] LABS: Alanine Aminotransferase 26 IU/L (<35); Albumin 4.1 g/dL (3.5-5.0); Albumin Globulin Ratio 1.1 (1.0-2.8); Alkaline Phosphatase 83 U/L (38-126); BUN Creatinine Ratio 19.7 (6-22); Bilirubin Total 0.6 mg/dL (0.2-1.3); Blood Urea Nitrogen 14 mg/dL (7-17); Calcium 8.9 mg/dL (8.4-10.2); Carbon Dioxide 24 mmol/L (22-32); Chloride 100 mmol/L (98-107); Estimated Glomerular Filt Rate > 60 mL/min (>60); Globulin 3.6 g/dL (1.7-4.1); Glucose 93 mg/dL (70-100); Lipase 62 U/L (23-300); Sodium 133 mmol/L (137-145); Total Protein 7.7 g/dL (6.3-8.2)
[2024-07-19 16:25] LABS: HEMOLYSIS 63 (0-50)
[2024-07-19 16:26] LABS: Aspartate Aminotransferase 27 IU/L (14-36); Potassium 4.3 mmol/L (3.4-5.1)
--- NOTE | 2024-07-19 17:11 | DI.CT.S_ITS ---
PROCEDURE: CT ABDOMEN PELVIS W CON INDICATIONS: ? nephrolithiasis TECHNIQUE: After the administration of intravenous contrast, axial sections acquired from the lung bases to the pubic symphysis. Coronal and sagittal reformats were performed. For radiation dose reduction, the following was used: automated exposure control, adjustment of mA and/or kV according to patient size. COMPARISON: [facility], CT, CT KIDNEY URETER BLADDER (KUB), 12/11/2021, 10:42. [facility], CT, CT KIDNEY URETER BLADDER (KUB), 07/28/2021, 5:14. FINDINGS: Image quality: Diagnostic. Lower Chest: No significant findings. ABDOMEN: Liver: No solid mass. Gallbladder: No radiopaque gallstones or wall thickening. Biliary ducts: No biliary dilation. Pancreas: No ductal dilation. Spleen: Size is within normal limits. Adrenal Glands: No adrenal nodules. Kidneys and Ureters: No hydronephrosis. No solid mass. No complex renal cystic lesion which requires follow up. Stomach and Bowel: Normal colonic caliber, without significant wall thickening. Surgical clips at the cecum, likely prior appendectomy. Peritoneum: No abnormal intraperitoneal fluid. No free air. Ventral Wall: No significant ventral hernia. Abdominal Nodes: No retroperitoneal or mesenteric adenopathy by size criteria. Vessels: Aorta and inferior vena cava are normal in size. PELVIS: Pelvic Organs: Unremarkable. Bladder: No bladder wall thickening, accounting for underdistention. Pelvic Nodes: No enlarged lymph nodes. Miscellaneous: No inguinal hernias are seen. Bones: No aggressive osseous abnormality. Focal degenerative changes at L5-S1. IMPRESSION: No acute findings within the abdomen or pelvis. No nephrolithiasis or hydronephrosis. Dictated by: Roney Quan M.D. on 07/19/2024 at 17:59 Approved by: Roney Quan M.D. on 07/19/2024 at 18:02
--- NOTE | 2024-07-19 17:29 | ED.FEMALEGU ---
HPI - Female Genitourinary <Maria Vasquez PA-C - Last Filed: 07/19/24 18:39> General Chief complaint: Urogenital-Female Stated complaint: kidney stone pain Time Seen by Provider: 07/19/24 15:24 History of Present Illness HPI Narrative: 39-year-old female with past medical history nephrolithiasis presents to the ED with 2 days of left-sided flank pain, wrapping around to the left abdomen. Patient also endorses nausea and vomiting. No fever, chills. Endorses mild discomfort with urination. Patient has a prior history of kidney stones for which she required stents. Related Data Previous Rx's Medication Instructions Recorded methocarbamol 750 mg tablet 750 mg PO QIDP PRN #40 tabs 05/10/17 (Robaxin-750) ondansetron 4 mg disintegrating 4 mg PO Q6H PRN nausea and 11/14/20 tablet vomiting #7 tabs hydrocodone 5 mg-acetaminophen 325 1 tab PO Q6H PRN pain #6 tabs 01/26/21 mg tablet diazepam 2 mg tablet (Valium) 2 mg PO BID-TID PRN muscle spasm 06/29/21 #10 tabs hydrocodone 5 mg-acetaminophen 325 1 tab PO Q4-6H PRN pain #10 tabs 06/29/21 mg tablet ketorolac 10 mg tablet 10 mg PO Q6H PRN pain #14 tabs 06/29/21 hydrocodone 5 mg-acetaminophen 325 1 tab PO Q4H PRN pain #20 tabs 07/28/21 mg tablet tamsulosin 0.4 mg capsule (Flomax) 0.4 mg PO DAILY #14 caps 07/28/21 ketorolac 10 mg tablet 10 mg PO Q6H PRN pain #20 tabs 12/11/21 oxycodone 5 mg tablet 5 mg PO Q4-6H PRN pain #10 tabs 12/11/21 tamsulosin 0.4 mg capsule (Flomax) 0.4 mg PO DAILY #30 caps 12/11/21 tramadol 50 mg tablet 50 mg PO Q6H PRN pain #20 tabs 12/11/21 hydrocodone 5 mg-acetaminophen 325 1 tab PO Q6H PRN pain #10 tabs 12/28/21 mg tablet ondansetron 4 mg disintegrating 4 mg PO Q6H PRN nausea and 12/28/21 tablet vomiting #10 tabs hydrocodone 5 mg-acetaminophen 325 1 tab PO Q8H PRN pain #10 tabs 06/30/22 mg tablet cyclobenzaprine 10 mg tablet 10 mg PO TID PRN muscle spasm #14 03/09/23 tabs hydrocodone 5 mg-acetaminophen 325 1 tab PO Q6H PRN pain #12 tabs 03/31/23 mg tablet methylprednisolone 4 mg tablets in See Rx Instructions PO .COMPLEX 03/31/23 a dose pack (Medrol (Geovani)) #21 ea ondansetron 4 mg disintegrating 4 mg PO Q8H PRN nausea and 03/31/23 tablet vomiting #10 tabs cyclobenzaprine 10 mg tablet 10 mg PO TID PRN muscle spasm 5 07/19/24 days #15 tabs Allergies Allergy/AdvReac Type Severity Reaction Status Date / Time lidocaine Allergy Unknown Verified 12/28/21 08:10 ARTECAINE (PRESERVATIVE) Allergy Unknown Uncoded 12/28/21 08:10 preservative in lidocaine Allergy Unknown Uncoded 12/28/21 08:10 Review of Systems <Maria Vasquez PA-C - Last Filed: 07/19/24 18:39> Constitutional Constitutional: Denies chills, Denies fatigue, Denies fever(s), Denies frequent falls, Denies lethargy and Denies weakness Eyes Eyes: Denies change in vision, Denies eye discharge, Denies irritation and Denies loss of vision ENT Ears, Nose, Mouth, and Throat: Denies change in voice, Denies dizziness, Denies neck pain, Denies sore throat and Denies throat swelling Cardiovascular Cardiovascular: Denies chest pain, Denies irregular heart rhythm, Denies lightheadedness, Denies palpitations, Denies dyspnea, Denies dyspnea on exertion and Denies orthopnea Respiratory Respiratory: Denies cough, Denies dyspnea, Denies dyspnea on exertion and Denies wheezing Gastrointestinal Gastrointestinal: Reports abdominal pain, Denies change in bowel habits, Denies diarrhea, Reports nausea and Reports vomiting Genitourinary Comments: L flank pain; mild discomfort with urination Musculoskeletal Musculoskeletal: Denies neck pain and Denies numbness Integumentary/Breasts Skin/Breast: Denies pruritus, Denies erythema, Denies rash and Denies wounds Neurologic Neurologic: Denies behavioral changes, Denies confusion, Denies dizziness, Denies frequent falls, Denies loss of vision, Denies numbness and Denies weakness Psychiatric Psychiatric: Denies anxiety, Denies behavioral changes, Denies confusion, Denies depression, Denies homicidal ideation and Denies suicidal ideation Endocrine Endocrine: Denies fatigue, Denies flushing and Denies palpitations Hematologic/Lymphatic Hematologic/Lymphatic: Denies easy bruising Allergic/Immunologic Allergic/Immunologic: Denies urticaria, Denies throat swelling and Denies wheezing Patient History <Maria Vasquez PA-C - Last Filed: 07/19/24 18:39> Medical History Arm pain, left Lumbar strain Post-operative pain Strain of left knee Surgical History H/O knee surgery History of colon surgery History of right salpingo-oophorectomy alcohol intake frequency: holidays/special occasions only Substance Use Type: does not use Exam <Maria Vasquez PA-C - Last Filed: 07/19/24 18:39> Initial Vital Signs Initial Vital Signs: Vital Signs Temperature 98.2 F 07/19/24 15:09 Pulse Rate 90 07/19/24 15:09 Respiratory Rate 18 07/19/24 15:09 Blood Pressure 188/88 H 07/19/24 15:09 Pulse Oximetry 97 07/19/24 15:09 Oxygen Delivery Method Room Air 07/19/24 15:09 <Bird Gaming DO - Last Filed: 07/20/24 10:27> Initial Vital Signs Initial Vital Signs: Vital Signs Temperature 98.2 F 07/19/24 15:09 Pulse Rate 90 07/19/24 15:09 Respiratory Rate 18 07/19/24 15:09 Blood Pressure 188/88 H 07/19/24 15:09 Pulse Oximetry 97 07/19/24 15:09 Oxygen Delivery Method Room Air 07/19/24 15:09 Course <NIKA Childers Last Filed: 07/19/24 18:39> Orders Ordered: Discontinued Medications Ketorolac Tromethamine (Ketorolac 30 Mg/Ml Vial) 15 mg IV NOW ONE Stop: 07/19/24 15:42 Last Admin: 07/19/24 16:15 Dose: 15 mg Documented By: SAMIR Ondansetron HCl (Ondansetron 4 Mg/2 Ml Inj) 4 mg IV NOW ONE Stop: 07/19/24 15:42 Last Admin: 07/19/24 16:15 Dose: 4 mg Documented By: SAMIR Vital Signs Vital signs: Vital Signs - 8 hr 07/19/24 15:09 07/19/24 18:23 Temperature 98.2 F Pulse Rate 90 85 Respiratory Rate 18 20 Blood Pressure 188/88 H 175/85 H Pulse Oximetry 97 100 Oxygen Delivery Method Room Air Room Air <Bird Gaming DO - Last Filed: 07/20/24 10:27> Orders Ordered: Discontinued Medications Ketorolac Tromethamine (Ketorolac 30 Mg/Ml Vial) 15 mg IV NOW ONE Stop: 07/19/24 15:42 Last Admin: 07/19/24 16:15 Dose: 15 mg Documented By: SAMIR Ondansetron HCl (Ondansetron 4 Mg/2 Ml Inj) 4 mg IV NOW ONE Stop: 07/19/24 15:42 Last Admin: 07/19/24 16:15 Dose: 4 mg Documented By: SAMIR Vital Signs Vital signs: Vital Signs - 8 hr 07/19/24 15:09 07/19/24 18:23 Temperature 98.2 F Pulse Rate 90 85 Respiratory Rate 18 20 Blood Pressure 188/88 H 175/85 H Pulse Oximetry 97 100 Oxygen Delivery Method Room Air Room Air MDM - Female Genitourinary <Maria Vasquez PA-C - Last Filed: 07/19/24 18:39> Lab Data 07/19/24 15:58 07/19/24 15:58 Labs: Lab Results 07/19/24 Range/Units 15:58 WBC 11.6 H (4.5-11.0) X10^3/uL RBC 4.82 (4.0-5.2) X10^6/uL Hgb 13.1 (12.0-16.0) g/dL Hct 38.9 (36-46) % MCV 80.8 (80-100) fL MCH 27.2 (26-34) PG MCHC 33.6 (30-36) % RDW 14.4 (11.6-14.8) % Plt Count 310 (150-400) X10^3/uL Neut % (Auto) 69.5 (50-75) % Lymph % (Auto) 21.5 L (25-40) % [place] % (Auto) 7.0 (3-14) % Eos % (Auto) 1.2 L (2-4) % Baso % (Auto) 0.8 (0-2) % Neut # (Auto) 8000 H (6203-3915) /uL Lymph # (Auto) 2500 (2108-9614) /uL [place] # (Auto) 800 (0-900) /uL Eos # (Auto) 100 (0-450) /uL Baso # (Auto) 100 (0-100) /uL Sodium 133 L (137-145) mmol/L Potassium 4.3 (3.4-5.1) mmol/L Chloride 100 (98-107) mmol/L Carbon Dioxide 24 (22-32) mmol/L BUN 14 (7-17) mg/dL Creatinine 0.71 (0.52-1.04) mg/dL Estimated GFR > 60 (>60) mL/min BUN/Creatinine Ratio 19.7 (6-22) Glucose 93 (70-100) mg/dL Calcium 8.9 (8.4-10.2) mg/dL Total Bilirubin 0.6 (0.2-1.3) mg/dL AST 27 (14-36) IU/L ALT 26 (<35) IU/L Alkaline Phosphatase 83 (38-126) U/L Total Protein 7.7 (6.3-8.2) g/dL Albumin 4.1 (3.5-5.0) g/dL Globulin 3.6 (1.7-4.1) g/dL Albumin/Globulin Ratio 1.1 (1.0-2.8) Lipase 62 (23-300) U/L Point of Care Testing Test Results Negative Urine Dip Bedside Urine Glucose Negative Bedside Urine Bilirubin - Negative Bedside Urine Ketone - Negative Urine Specific [place] 1.030 Bedside Urine Occult Blood - Negative Bedside Urine pH 6.0 Bedside Urine Protein - Negative Bedside Urine Urobilinogen - Negative Bedside Urine Nitrite - Negative Bedside Urine Leukocytes - Negative Esterase MDM Narrative Medical decision making narrative: 39-year-old female with past medical history nephrolithiasis presents to the ED with 2 days of left-sided flank pain, wrapping around to the left abdomen. Concern for UTI versus pyelonephritis versus kidney stones versus other intra-abdominal pathology versus other. Will obtain labs, UA, CT abdomen pelvis. Will give Toradol and Zofran for symptoms. Will reassess. Labs within normal limits. UA without UTI. Urine hCG is negative. CT shows no acute findings within the abdomen or pelvis. No nephrolithiasis or hydronephrosis. Discussed findings with patient. Reassessed patient, patient endorses feeling better with the ketorolac. Patient also states that her pain is now more reproducible with movement and rotation of her torso. Patient also admits to billing a lot of hay over the weekend that could have contributed to her straining her back. Advice ibuprofen, Tylenol, lidocaine patches for pain relief. Recommend follow-up with PCP. ED return precautions were discussed with patient. Patient verbalized understanding. Medical records reviewed: Yes <Bird Gaming, - Last Filed: 07/20/24 10:27> Lab Data Labs: Lab Results 07/19/24 Range/Units 15:58 WBC 11.6 H (4.5-11.0) X10^3/uL RBC 4.82 (4.0-5.2) X10^6/uL Hgb 13.1 (12.0-16.0) g/dL Hct 38.9 (36-46) % MCV 80.8 (80-100) fL MCH 27.2 (26-34) PG MCHC 33.6 (30-36) % RDW 14.4 (11.6-14.8) % Plt Count 310 (150-400) X10^3/uL Neut % (Auto) 69.5 (50-75) % Lymph % (Auto) 21.5 L (25-40) % [place] % (Auto) 7.0 (3-14) % Eos % (Auto) 1.2 L (2-4) % Baso % (Auto) 0.8 (0-2) % Neut # (Auto) 8000 H (5819-5410) /uL Lymph # (Auto) 2500 (8645-9245) /uL [place] # (Auto) 800 (0-900) /uL Eos # (Auto) 100 (0-450) /uL Baso # (Auto) 100 (0-100) /uL Sodium 133 L (137-145) mmol/L Potassium 4.3 (3.4-5.1) mmol/L Chloride 100 (98-107) mmol/L Carbon Dioxide 24 (22-32) mmol/L BUN 14 (7-17) mg/dL Creatinine 0.71 (0.52-1.04) mg/dL Estimated GFR > 60 (>60) mL/min BUN/Creatinine Ratio 19.7 (6-22) Glucose 93 (70-100) mg/dL Calcium 8.9 (8.4-10.2) mg/dL Total Bilirubin 0.6 (0.2-1.3) mg/dL AST 27 (14-36) IU/L ALT 26 (<35) IU/L Alkaline Phosphatase 83 (38-126) U/L Total Protein 7.7 (6.3-8.2) g/dL Albumin 4.1 (3.5-5.0) g/dL Globulin 3.6 (1.7-4.1) g/dL Albumin/Globulin Ratio 1.1 (1.0-2.8) Lipase 62 (23-300) U/L Point of Care Testing Test Results Negative Urine Dip Bedside Urine Glucose Negative Bedside Urine Bilirubin - Negative Bedside Urine Ketone - Negative Urine Specific [place] 1.030 Bedside Urine Occult Blood - Negative Bedside Urine pH 6.0 Bedside Urine Protein - Negative Bedside Urine Urobilinogen - Negative Bedside Urine Nitrite - Negative Bedside Urine Leukocytes - Negative Esterase MDM Narrative Medical decision making narrative: 39-year-old female with past medical history nephrolithiasis presents to the ED with 2 days of left-sided flank pain, wrapping around to the left abdomen. Concern for UTI versus pyelonephritis versus kidney stones versus other intra-abdominal pathology versus other. Will obtain labs, UA, CT abdomen pelvis. Will give Toradol and Zofran for symptoms. Will reassess. Labs within normal limits. UA without UTI. Urine hCG is negative. CT shows no acute findings within the abdomen or pelvis. No nephrolithiasis or hydronephrosis. Discussed findings with patient. Reassessed patient, patient endorses feeling better with the ketorolac. Patient also states that her pain is now more reproducible with movement and rotation of her torso. Patient also admits to billing a lot of hay over the weekend that could have contributed to her straining her back. Advice ibuprofen, Tylenol, lidocaine patches for pain relief. Recommend follow-up with PCP. ED return precautions were discussed with patient. Patient verbalized understanding. Medical records reviewed: Yes Dr. Gaming: I was immediately available in the department for consultation. Documentation has been reviewed. I agree with assessment and plan. Discharge Plan Departure Patient Disposition: Home Clinical Impression: Flank pain Instructions: DI for Flank Pain Activity Restrictions/Additional Instructions: You were evaluated in the ED today for flank pain. Your labs, urine, CT scan were normal. It is possible that you either passed a stone prior to the CT or your symptoms could be caused by a musculoskeletal sprain/strain. You may continue to take 1000 mg of Tylenol and 600 mg of ibuprofen every 8 hours with food for pain. You may also apply lidocaine patches which are available [id number]. You are being prescribed a muscle relaxant for pain relief. Please be aware that this medicine can make you sleepy so refrain from taking it while driving or operating machinery. Please monitor your symptoms and return to the ED if you have any worsening symptoms. Prescriptions: New cyclobenzaprine 10 mg tablet 10 mg PO TID PRN (Reason: muscle spasm) 5 Days Qty: 15 0RF No Action methocarbamol [Robaxin-750] 750 MG tablet 750 mg PO QIDP PRNQty: 40 0RF ondansetron 4 mg tablet,disintegrating 4 mg PO Q6H PRN (Reason: nausea and vomiting) Qty: 7 0RF hydrocodone-acetaminophen 5-325 mg tablet 1 tab PO Q6H PRN (Reason: pain) Qty: 6 0RF hydrocodone-acetaminophen 5-325 mg tablet 1 tab PO Q4-6H PRN (Reason: pain) Qty: 10 0RF ketorolac 10 mg tablet 10 mg PO Q6H PRN (Reason: pain) Qty: 14 0RF diazepam [Valium] 2 mg tablet 2 mg PO BID-TID PRN (Reason: muscle spasm) Qty: 10 0RF tramadol 50 mg tablet 50 mg PO Q6H PRN (Reason: pain) Qty: 20 0RF tamsulosin [Flomax] 0.4 mg capsule 0.4 mg PO DAILY Qty: 30 0RF ketorolac 10 mg tablet 10 mg PO Q6H PRN (Reason: pain) Qty: 20 0RF oxycodone 5 mg tablet 5 mg PO Q4-6H PRN (Reason: pain) Qty: 10 0RF hydrocodone-acetaminophen 5-325 mg tablet 1 tab PO Q6H PRN (Reason: pain) Qty: 10 0RF ondansetron 4 mg tablet,disintegrating 4 mg PO Q6H PRN (Reason: nausea and vomiting) Qty: 10 0RF cyclobenzaprine 10 mg tablet 10 mg PO TID PRN (Reason: muscle spasm) Qty: 14 0RF hydrocodone-acetaminophen 5-325 mg tablet 1 tab PO Q4H PRN (Reason: pain) Qty: 20 0RF tamsulosin [Flomax] 0.4 mg capsule 0.4 mg PO DAILY Qty: 14 0RF hydrocodone-acetaminophen 5-325 mg tablet 1 tab PO Q8H PRN (Reason: pain) Qty: 10 0RF hydrocodone-acetaminophen 5-325 mg tablet 1 tab PO Q6H PRN (Reason: pain) Qty: 12 0RF methylprednisolone [Medrol (Geovani)] 4 mg tablets,dose pack See Rx Instructions .ROUTE .COMPLEX Qty: 21 0RF Rx Instructions: orally per package directions ondansetron 4 mg tablet,disintegrating 4 mg PO Q8H PRN (Reason: nausea and vomiting) Qty: 10 0RF Referrals: Miscellaneous,Doctor, MD [Primary Care Provider] - Stand Alone Forms: Patient Portal/API
[2024-07-19 18:23] VITALS: BP 175/85; PULSE 85; RESP 20; O2SAT 100
== END 2024-07-19 18:24 | disposition home or self-care (01) ==
PROVIDERS: Emergency Provider Student in an Organized Health Care Education/Training Program
DX: R10.9 Unspecified abdominal pain (principal); R11.2 Nausea with vomiting, unspecified; R30.0 Dysuria; Z87.442 Personal history of urinary calculi
CPT/HCPCS: 36415; 74177; 80053; 81003; 81025; 83690; 85025; 96374; 96375; 99284; J1885; J2405